=== PATIENT | female | born 1950 | race Hispanic/Latino ===

== ENCOUNTER → 2018-03-29 | Outpatient (CLI) | payer OTHER, MEDICARE ==
[~2018-03-29] MED LIST: AMLODIPINE PO; ASPI-1005 PO; GLIP5TAB11 PO; IBUP-2353 PO; INSLAN SQ; LEVOTHYROXINE PO; LOSA100T29 PO; METFORMIN PO; SIMV20TA6 PO; TYL3 PO
== END | disposition home or self-care (01) ==
LOC: RAH 08:37
PROVIDERS: ATTEND Family Medicine
DX: R60.0 Localized edema (principal); R06.02 Shortness of breath
CPT/HCPCS: 93306

== ENCOUNTER → 2018-06-30 | Outpatient (CLI) | payer SELFPAY ==
[~2018-06-30] MED LIST changes: +LOSA100T20 PO; -LOSA100T29 PO
== END | disposition home or self-care (01) ==
LOC: OIH 13:01
PROVIDERS: ATTEND Internal Medicine Cardiovascular Disease
DX: Z13.6 Encounter for screening for cardiovascular disorders (principal)
CPT/HCPCS: 75571

== ENCOUNTER → 2018-07-19 | Outpatient (CLI) | payer OTHER, MEDICARE | END | disposition home or self-care (01) | LOC: SHCH 10:02 | PROVIDERS: ATTEND Internal Medicine Cardiovascular Disease | DX: I87.2 Venous insufficiency (chronic) (peripheral) (principal); Z95.820 Peripheral vascular angioplasty status with implants and grafts | CPT/HCPCS: 93970 ==

== ENCOUNTER 2018-11-16 15:57 | Inpatient (IN) | payer OTHER, MEDICARE ==
[~2018-11-16] VITALS: Ht 149.9 cm; Wt 77.8 kg
[~2018-11-16 15:57] MED LIST changes: +AMLO5TAB9 PO; -AMLODIPINE PO; +CARV6.2579 PO; +CRAN1CAP10 PO; +ERGO500014 PO; -GLIP5TAB11 PO; +GLUC-145 PO; -IBUP-2353 PO; -INSLAN SQ; +INSU3INS3 SQ; +ISOS30TA6 PO; +LEVO100T12 PO; -LEVOTHYROXINE PO; -LOSA100T20 PO; +LOSA100T58 PO; +MELO-106 PO; +METF-446 PO; -METFORMIN PO; +NITR0.4T50 SL; +OMEP20TA25 PO; +PIOG30TA70 PO; +TURM500C9 PO; -TYL3 PO
[2018-11-16] MEDS ORDERED: ACETAMINOPHEN 325 MG TAB ONE (16:14)
[2018-11-16] MEDS ORDERED: ONDANSETRON HCL 4 MG/2 ML VIAL ONE (16:14)
[2018-11-16 16:18] LABS: BASOPHILS % (AUTO) 0.1 % (0.0-5.0); EOSINOPHILS % (AUTO) 0.8 % (0.0-8.0); HEMATOCRIT 30.6 % (36-48); LYMPHOCYTES % (AUTO) 2.7 % (21.0-51.0); MEAN CORPUSCULAR HEMOGLOBIN 25.9 pg (27.0-33.0); MEAN CORPUSCULAR HGB CONC 32.1 g/dL (32.0-36.0); MEAN CORPUSCULAR VOLUME 80.6 fL (79-99); MONOCYTES % (AUTO) 1.6 % (3.0-13.0); NEUTROPHILS % (AUTO) 94.8 % (40.0-77.0); PLATELET COUNT (AUTO) 141 K/uL (130-400); RED CELL DISTRIBUTION WIDTH 16.6 % (11.0-15.5); WHITE BLOOD COUNT (AUTO) 6.5 K/uL (4.8-10.8)
[2018-11-16 16:32] LABS: INR 1.03 (0.85-1.15); PARTIAL THROMBOPLASTIN TIME 25.2 SEC (26.3-35.5); PROTHROMBIN TIME 10.8 SEC (9.6-11.6)
[2018-11-16 16:36] LABS: APPEARANCE,URINE CLEAR (CLEAR); BILIRUBIN,URINE NEGATIVE (NEGATIVE); COLOR,URINE YELLOW (YELLOW); GLUCOSE, URINE (UA) NEGATIVE (NEGATIVE); KETONES,URINE 5 mg/dL (NEGATIVE); LEUKOCYTE ESTERASE ,URINE SMALL (NEGATIVE); NITRATE,URINE NEGATIVE (NEGATIVE); OCCULT BLOOD,URINE SMALL (NEGATIVE); PH,URINE 8.5 (5.0-8.0); PROTEIN,URINE 30 (NEGATIVE); UROBILINOGEN,URINE 0.2 mg/dL (0.2-1.0)
[2018-11-16 16:43] LABS: ALBUMIN 3.1 g/dL (3.5-5.0); BILIRUBIN,TOTAL 0.3 mg/dL (0.2-1.0); CREATININE 1.5 mg/dL (0.5-1.5); POTASSIUM 3.5 mmol/L (3.5-5.1); TOTAL PROTEIN, SERUM 7.5 g/dL (6.0-8.3)
[2018-11-16] MEDS ORDERED: SODIUM CHLORIDE 0.9% 500ML 500 ML IV ONE (16:52)
[2018-11-16 16:57] LABS: BACTERIA,URINE Few /HPF (None Seen)
[2018-11-16 16:58] LABS: SQUAMOUS EPITHELIAL CELL,UR None Seen /HPF (0-2)
[2018-11-16] MEDS ORDERED: SODIUM CHLORIDE 0.9% 50 ML IV ONE (18:25)
[2018-11-16] MEDS ORDERED: CEFTRIAXONE SODIUM 1 GM ONE (18:25)
[2018-11-16] MEDS ORDERED: LEVOFLOXACIN 500 MG/D5W 100 ML 0 ML ONE (18:50)
[2018-11-16] MEDS ORDERED: AZITHROMYCIN 500MG+NS 250ML 250 ML IV ONE (18:51)
[2018-11-16] MEDS ORDERED: POTASSIUM CHLORIDE 10% ELIXIR 20 MEQ/15 ML UDCUP PO PRN (19:30)
[2018-11-16] MEDS ORDERED: DIPHENHYDRAMINE HCL 25 MG CAPSULE PO PRN (19:30)
[2018-11-16] MEDS ORDERED: CLONIDINE HCL 0.1 MG TABLET PO PRN (19:30)
[2018-11-16] MEDS ORDERED: LIDOCAINE HCL-MPF 1% 2ML VIAL IJ PRN (19:30)
[2018-11-16] MEDS ORDERED: MAG HYDROX/AL HYDROX/SIMETH ES 30 ML SUSP UDCUP PO PRN (19:30)
[2018-11-16] MEDS ORDERED: ZOLPIDEM TARTRATE 5 MG TAB PO PRN (19:30)
[2018-11-16] MEDS ORDERED: LACTULOSE 20 GM/30 ML UDCUP PO PRN (19:30)
[2018-11-16] MEDS ORDERED: DEXTROSE 50%-WATER 50 ML DISP.SYRIN IV PRN (19:30)
[2018-11-16] MEDS ORDERED: ACETAMINOPHEN 325 MG TAB PO PRN ×2 (19:30)
[2018-11-16] MEDS ORDERED: POTASSIUM CHLORIDE 20 MEQ ERTAB PO PRN (19:30)
[2018-11-16] MEDS ORDERED: TRAMADOL HCL 50 MG TABLET PO PRN (19:30)
[2018-11-16] MEDS ORDERED: DiphenhydrAMINE HCL 50 MG/ML VIAL IVP PRN (19:30)
[2018-11-16] MEDS ORDERED: GLUCAGON 1MG KIT 1 MG ML IM PRN (19:30)
[2018-11-16] MEDS ORDERED: POTASSIUM CHLORIDE 20MEQ/100ML 100 ML IV PRN (19:30)
[2018-11-16] MEDS ORDERED: ONDANSETRON HCL 4 MG/2 ML VIAL IVP PRN (19:30)
[2018-11-16] MEDS: INSULIN R PO SSI SQ SCH (21:00)
[2018-11-16 22:20] VITALS: BP 94/50
--- NOTE | 2018-11-16 22:30 | NUR ---
ADMIT PT ADMITTED TO ROOM 329, AAOX3. DENIES ANY PAINS NOR DISCOMFORT AT THIS TIME. NO DISTRESS NOTED. ADMISSION CARE DONE. ADMISSION V/S MONITORED, STABLE. ADMISSION DATA BASE COMPLETED. HOME MEDS RECONCILED IN THE COMPUTER, PENDING MD TO REVIEW AND RECONCILE. IN FOR MORE CARE AND MANAGEMENT. Addendum: 11/16/18 at 1707 by ADRIANA SEE RN RN Amended: Links added.
[2018-11-16] MEDS ORDERED: POTA20TA82 PO (22:40)
[2018-11-16] MEDS ORDERED: IBUP-2353 PO (22:40)
[2018-11-16] MEDS ORDERED: LINA5TAB PO (22:40)
[2018-11-16] MEDS: IPRATROPIUM/ALBUTEROL SULFATE 3 ML SOLUTION IH SCH (22:46)
[2018-11-17] VITALS: BP 98/51
[2018-11-17] MEDS: IPRATROPIUM/ALBUTEROL SULFATE 3 ML SOLUTION IH SCH ×6 (02:00→21:28)
--- NOTE | 2018-11-17 02:00 | NUR ---
ROUNDS PT RESTING WELL, NO DISTRESS NOTED. NO COMPLAINTS VERBALIZED. KEPT RESTED AND COMFORTABLE. CALL LIGHT WITHIN REACH. WILL CONTINUE TO MONITOR.
[2018-11-17 04:00] VITALS: BP 97/59
[2018-11-17 04:14] LABS: HEMATOCRIT 25.1 % (36-48); MEAN CORPUSCULAR HEMOGLOBIN 25.4 pg (27.0-33.0); MEAN CORPUSCULAR HGB CONC 31.5 g/dL (32.0-36.0); MEAN CORPUSCULAR VOLUME 80.5 fL (79-99); PLATELET COUNT (AUTO) 117 K/uL (130-400); RED BLOOD CELL COUNT(AUTO) 3.12 MIL/uL (4.00-5.50); RED CELL DISTRIBUTION WIDTH 16.5 % (11.0-15.5); WHITE BLOOD COUNT (AUTO) 11.1 K/uL (4.8-10.8)
[2018-11-17 04:33] LABS: ALBUMIN 2.5 g/dL (3.5-5.0); BILIRUBIN,TOTAL 0.2 mg/dL (0.2-1.0); CREATININE 1.6 mg/dL (0.5-1.5); POTASSIUM 4.3 mmol/L (3.5-5.1); TOTAL PROTEIN, SERUM 6.2 g/dL (6.0-8.3)
--- NOTE | 2018-11-17 05:29 | NUR ---
ROUNDS PT STILL FAIRLY ASLEEP. NO DISTRESS NOTED. KEPT UNDISTURBED FOR NOW. FOR MORE CARE.
[2018-11-17] MEDS: INSULIN R PO SSI SQ SCH ×4 (06:18→20:59)
[2018-11-17] MEDS ORDERED: HONE44PA TP (07:02)
[2018-11-17 08:00] VITALS: BP 93/54
[2018-11-17] MEDS ORDERED: PNEUMOCOCCAL VACCINE POLYVALENT 0.5 ML/VIAL [PPV] IM SCH (09:00)
[2018-11-17] MEDS: HONEY 1 APPL/ML TUBE TP SCH ×2 (09:09→15:09)
[2018-11-17] MEDS: PANTOPRAZOLE SODIUM 40 MG TABLET.DR PO SCH (09:10)
[2018-11-17 12:00] VITALS: BP 99/58
--- NOTE | 2018-11-17 12:10 | NUR ---
DCP CM met with pt discussed dc plans. Pt is semi-independent prior to admission, lives at home alone. Has a walker, cane, and provider 26hrs/day([facility]isel is pt's provider). Pt feels safe to go back home, daughter and neice able to assist with transportation and needs as necessary. Offered poss short term placement if MD recommends, pt declined at this time. DC plan to home once stable. CM to cont to follow up. Addendum: 11/17/18 at 1212 by CESILIA PRESLEY LVN CM Amended: Links added.
[2018-11-17 16:00] VITALS: BP 100/55
[2018-11-17] MEDS ORDERED: AZITHROMYCIN 500MG+NS 250ML 250 ML IV ONE (16:24)
[2018-11-17] MEDS ORDERED: CEFTRIAXONE SODIUM 1 GM ONE (16:24)
[2018-11-17] MEDS: AZITHROMYCIN 500MG+NS 250ML 250 ML IV SCH (16:35)
[2018-11-17] MEDS ORDERED: CEFTRIAXONE SODIUM 1 GM IVP SCH (18:00)
[2018-11-17 20:00] VITALS: BP 100/56
[2018-11-18] VITALS: BP 140/70
[2018-11-18] MEDS: IPRATROPIUM/ALBUTEROL SULFATE 3 ML SOLUTION IH SCH ×6 (01:21→22:39)
--- NOTE | 2018-11-18 03:30 | NUR ---
CHAIR PATIENT UP TO CHAIR AT BEDSIDE FOR 1.5 HOURS WITH ONE PERSON ASSIST. RESPIRATIONS EVEN AND UNLABORED-REMAINS ON O2 2L VIA NC. ASSISTED PATIENT BACK TO BED. PATIENT TOLERATED WELL.
[2018-11-18 04:00] VITALS: BP 140/70
[2018-11-18] MEDS: INSULIN R PO SSI SQ SCH ×4 (06:01→21:39)
[2018-11-18 09:24] VITALS: BP 130/64
--- NOTE | 2018-11-18 09:33 | NUR ---
CALLED DR BARRAGAN, HIS OFFICE NUMBER JUMPS TO A MESSAGE SAYING THEY ARE BUSY AND TO CALL LATER, CALLED 3 TIMES IN THE LAST 15 MINUTES. WILL CALL AGAIN IN AN HOUR
[2018-11-18] MEDS: MEROPENEM 500 MG VIAL IVP SCH ×2 (10:30→17:33)
[2018-11-18] MEDS: PANTOPRAZOLE SODIUM 40 MG TABLET.DR PO SCH (10:30)
[2018-11-18] MEDS: HONEY 1 APPL/ML TUBE TP SCH (10:36)
[2018-11-18 12:17] VITALS: BP 123/76
[2018-11-18 16:28] VITALS: BP 127/63
[2018-11-18] MEDS: AZITHROMYCIN 500MG+NS 250ML 250 ML IV SCH (17:33)
[2018-11-18 19:57] VITALS: BP 121/61
[2018-11-19] VITALS: BP 119/58
[2018-11-19] MEDS: MEROPENEM 500 MG VIAL IVP SCH ×3 (01:13→17:08)
[2018-11-19] MEDS: IPRATROPIUM/ALBUTEROL SULFATE 3 ML SOLUTION IH SCH ×4 (02:00→14:45)
[2018-11-19 04:00] VITALS: BP 115/64
[2018-11-19] MEDS: INSULIN R PO SSI SQ SCH ×3 (06:14→16:35)
[2018-11-19 07:48] VITALS: BP 132/61
[2018-11-19] MEDS: PANTOPRAZOLE SODIUM 40 MG TABLET.DR PO SCH (09:13)
[2018-11-19] MEDS: HONEY 1 APPL/ML TUBE TP SCH (09:15)
[2018-11-19 11:57] VITALS: BP 118/56
[2018-11-19 13:02] LABS: HEMATOCRIT 28.2 % (36-48); MEAN CORPUSCULAR HEMOGLOBIN 25.7 pg (27.0-33.0); MEAN CORPUSCULAR HGB CONC 31.9 g/dL (32.0-36.0); MEAN CORPUSCULAR VOLUME 80.6 fL (79-99); PLATELET COUNT (AUTO) 138 K/uL (130-400); RED CELL DISTRIBUTION WIDTH 16.5 % (11.0-15.5); WHITE BLOOD COUNT (AUTO) 5.7 K/uL (4.8-10.8)
[2018-11-19] MEDS: AZITHROMYCIN 500MG+NS 250ML 250 ML IV SCH (17:08)
--- NOTE | 2018-11-19 17:30 | NUR ---
Patient PIV removed; discharge instructions given; prescription given and copy made and placed in chart
== END 2018-11-19 17:25 | disposition home or self-care (01) | DRG 195 ==
LOC: EDH 15:57 → OBSVTOIN 18:50 → EDHIP 18:50 → 3AH 22:15
PROVIDERS: ADMIT Family Medicine; ATTEND Family Medicine
PROC: 3E0234Z Introduction of Serum, Toxoid and Vaccine into Muscle, Percutaneous Approach (ICD-10-PCS; principal; 2018-11-17)
DX: J18.9 Pneumonia, unspecified organism (principal); I10 Essential (primary) hypertension; E11.9 Type 2 diabetes mellitus without complications; I25.10 Atherosclerotic heart disease of native coronary artery without angina pectoris; E78.5 Hyperlipidemia, unspecified; Z95.1 Presence of aortocoronary bypass graft; Z23 Encounter for immunization
CPT/HCPCS: 36415; 71045; 80053; 81001; 82948; 83605; 84484; 85025; 85027; 85610; 85730; 87040; 87077; 87088; 87186; 87804; 93005; 94640; 94664; A4218; G0378; J0456; J0696; J1815; J1956; J2185; J2405; J7040

== ENCOUNTER → 2018-12-05 | Outpatient (CLI) | payer OTHER, MEDICARE ==
[~2018-12-05] MED LIST changes: +AEC81 PO; +FURO20TA4 PO; +HONE44PA TP; +IBUP-2353 PO; +LINA5TAB PO; +POTA20TA82 PO; +TRAZ-185 PO; -TURM500C9 PO
== END | disposition home or self-care (01) ==
LOC: OIH 13:10
PROVIDERS: ATTEND Family Medicine
DX: J90 Pleural effusion, not elsewhere classified (principal); R91.8 Other nonspecific abnormal finding of lung field; J98.11 Atelectasis; M85.88 Other specified disorders of bone density and structure, other site
CPT/HCPCS: 71046

== ENCOUNTER 2018-12-06 21:05 | Inpatient (IN) | payer OTHER, MEDICARE | END 2018-12-10 14:40 | disposition still patient (30) | LOC: EDH 21:05 → EDHIP 23:37 → 2DH 12-07 01:40 | DX: I50.9 Heart failure, unspecified (principal) ==

== ENCOUNTER 2020-11-14 08:11 | Inpatient (IN) | payer OTHER, MEDICARE ==
[2020-11-14] VITALS (30 sets, daily range): BP systolic 88–116; BP diastolic -14–57
[~2020-11-14] VITALS: Ht 149.9 cm; Wt 76.8 kg
[~2020-11-14 08:11] MED LIST changes: +AMLO-257 PO; -AMLO5TAB9 PO; -ASPI-1005 PO; -FURO20TA4 PO; -HONE44PA TP; -IBUP-2353 PO; +IBUP-2784 PO; -ISOS30TA6 PO; +ISOS30TA92 PO; -POTA20TA82 PO; +ROCURONIUM BROMIDE 10MG/1ML 5ML VL IV ONE; +SIMV-43 PO; -SIMV20TA6 PO
[2020-11-14] MEDS ORDERED: 0.9%NACL 1000ML 1,000 ML IV ONE ×3 (08:37→14:05)
[2020-11-14] MEDS ORDERED: 0.9%NACL 1000ML 2,000 ML IV ONE (08:54)
[2020-11-14] MEDS ORDERED: NOREPINEPHRIN 4MG/NS 250ML 250 ML IV ONE ×2 (08:55→10:07)
[2020-11-14] MEDS ORDERED: ZOSYN 3.375GM+NS 50ML 50 ML IV ONE (08:55)
[2020-11-14] MEDS ORDERED: KETAMINE 50MG/ML SYRINGE 50 MG/ML DISP.SYRIN IV ONE (09:10)
[2020-11-14] MEDS ORDERED: ROCURONIUM BROMIDE 10MG/1ML 5ML VL ONE (09:11)
[2020-11-14 09:16] LABS: ABG BASE EXCESS -27.1 mmol/L (-2.0-3.0); ABG OXYGEN SATURATION 98.3 % (95.0-99.0); ABG PCO2 30 mmHg (32-45)
[2020-11-14] MEDS ORDERED: SODIUM BICARB 50MEQ 50ML VIAL 100 ML ONE ×2 (09:21→13:57)
[2020-11-14] MEDS ORDERED: DEXTROSE 50%-WATER 50 ML DISP.SYRIN IV ONE (09:21)
[2020-11-14] MEDS ORDERED: INSULIN HUMULIN R 100 UNIT/ML 3ML ONE (09:21)
[2020-11-14 09:30] LABS: BASOPHILS % (AUTO) 0.1 % (0.0-5.0); HEMATOCRIT 26.5 % (36-48); LYMPHOCYTES % (AUTO) 11.6 % (21.0-51.0); MEAN CORPUSCULAR HEMOGLOBIN 24.1 pg (27.0-33.0); MEAN CORPUSCULAR HGB CONC 29.1 g/dL (32.0-36.0); MEAN CORPUSCULAR VOLUME 83.1 fL (79-99); MONOCYTES % (AUTO) 3.3 % (3.0-13.0); NEUTROPHILS % (AUTO) 83.4 % (40.0-77.0); PLATELET COUNT (AUTO) 184 K/uL (130-400); RED BLOOD CELL COUNT(AUTO) 3.19 MIL/uL (4.00-5.50); RED CELL DISTRIBUTION WIDTH 20.8 % (11.0-15.5); WHITE BLOOD COUNT (AUTO) 16.2 K/uL (4.8-10.8)
[2020-11-14 09:35] LABS: APPEARANCE,URINE SL CLOUDY (CLEAR); BILIRUBIN,URINE NEGATIVE (NEGATIVE); COLOR,URINE YELLOW (YELLOW); GLUCOSE, URINE (UA) NEGATIVE (NEGATIVE); KETONES,URINE NEGATIVE (NEGATIVE); LEUKOCYTE ESTERASE ,URINE NEGATIVE (NEGATIVE); NITRATE,URINE NEGATIVE (NEGATIVE); OCCULT BLOOD,URINE LARGE (NEGATIVE); PROTEIN,URINE 30 mg/dL (NEGATIVE); UROBILINOGEN,URINE 0.2 mg/dL (0.2-1.0)
[2020-11-14 09:42] LABS: INR 1.23 (0.85-1.15); PROTHROMBIN TIME 13.2 SEC (9.6-11.6)
[2020-11-14 09:43] LABS: PARTIAL THROMBOPLASTIN TIME 44.3 SEC (26.3-35.5)
[2020-11-14 10:03] LABS: BACTERIA,URINE Rare /HPF (None Seen); RBC,URINE 0-1 /HPF (0-1); WBC,URINE 0-1 /HPF (0-1)
[2020-11-14 10:05] LABS: ALBUMIN 2.6 g/dL (3.5-5.0); BILIRUBIN,TOTAL 0.1 mg/dL (0.2-1.0); CREATININE 7.2 mg/dL (0.5-1.5); CRP QUANTITATIVE 11.4 mg/L (0.00-9.0); TOTAL PROTEIN, SERUM 6.1 g/dL (6.0-8.3)
[2020-11-14 10:09] LABS: B-TYPE NATRIURETIC PEPTIDE 600 pg/mL (0-100)
[2020-11-14] MEDS ORDERED: NOREPINEPHRIN 4MG/NS 250ML 250 ML IV PRN (10:30)
[2020-11-14] MEDS ORDERED: GLUCAGON 1MG KIT 1 MG ML IM PRN (10:30)
[2020-11-14] MEDS ORDERED: DEXTROSE 50%-WATER 50 ML DISP.SYRIN IV PRN (10:30)
[2020-11-14] MEDS ORDERED: NOREPINEPHRINE BITARTRATE 16 MG in 0.9% NACL 250ML 250 ML IV SCH (10:30)
[2020-11-14] MEDS ORDERED: MAGNESIUM 2GM PREMIX 50ML 50 ML IV PRN (10:30)
[2020-11-14] MEDS: PANTOPRAZOLE 40 MG/VIAL IVP SCH ×2 (10:45→20:45)
[2020-11-14] MEDS ORDERED: PANTOPRAZOLE 40 MG/VIAL ONE (10:47)
[2020-11-14 10:59] LABS: ABG BASE EXCESS -23.9 mmol/L (-2.0-3.0); ABG HCO3 6.2 mmol/L (21.0-28.0); ABG OXYGEN SATURATION 95.8 % (95.0-99.0); ABG PCO2 27 mmHg (32-45)
[2020-11-14] MEDS ORDERED: CEFTRIAXONE 500MG VIAL ONE (11:05)
[2020-11-14] MEDS ORDERED: PROPOFOL 1000 MG/100 ML 100 ML IV ONE ×2 (11:15→17:55)
[2020-11-14 11:32] LABS: CREATININE 6.3 mg/dL (0.5-1.5)
[2020-11-14 11:34] LABS: POTASSIUM 6.4 mmol/L (3.5-5.1)
[2020-11-14] MEDS: VANCOMYCIN 1G/250ML KIT 250 ML IV SCH (14:38)
[2020-11-14] MEDS ORDERED: VANCOMYCIN PROTOCOL PER PHARMACY IV SCH (14:45)
[2020-11-14] MEDS: [UNRECOGNIZED DRUG - OTHER] IV SCH (14:45)
[2020-11-14] MEDS: SODIUM BICARB IV SCH (14:45)
[2020-11-14 15:52] LABS: TROPONIN I 0.09 ng/mL (0.00-0.06)
[2020-11-14] MEDS ORDERED: PHARMACY COMMUNICATION MISC SCH (19:00)
[2020-11-14] MEDS: NOREPINEPHRINE BITARTRATE 32 MG in 0.9% NACL 250ML 250 ML IV SCH (20:18)
[2020-11-14] MEDS: ZOSYN 3.375GM+NS 50ML 50 ML IV SCH (20:45)
[2020-11-14 23:27] LABS: HEMATOCRIT 31.4 % (36-48); MEAN CORPUSCULAR HEMOGLOBIN 24.1 pg (27.0-33.0); MEAN CORPUSCULAR HGB CONC 28.3 g/dL (32.0-36.0); MEAN CORPUSCULAR VOLUME 84.9 fL (79-99); PLATELET COUNT (AUTO) 274 K/uL (130-400); RED CELL DISTRIBUTION WIDTH 21.2 % (11.0-15.5)
[2020-11-14 23:36] LABS: WHITE BLOOD COUNT (AUTO) 33.8 K/uL (4.8-10.8)
[2020-11-14 23:44] LABS: ALBUMIN 2.3 g/dL (3.5-5.0); BILIRUBIN,TOTAL 0.3 mg/dL (0.2-1.0); CREATININE 6.1 mg/dL (0.5-1.5); TOTAL PROTEIN, SERUM 5.7 g/dL (6.0-8.3)
[2020-11-14 23:50] LABS: POTASSIUM 7.3 mmol/L (3.5-5.1)
[2020-11-15] VITALS (93 sets, daily range): BP systolic 76–141; BP diastolic 29–83
[2020-11-15] MEDS: SODIUM BICARB 8.4% 50ML SYRINGE IVP SCH (00:30)
[2020-11-15] MEDS: DEXTROSE 50%-WATER 25 GM/50 ML VIAL IV SCH (00:30)
[2020-11-15] MEDS ORDERED: INSULIN HUMULIN R 100 UNIT/ML 3ML ONE (00:42)
[2020-11-15] MEDS ORDERED: CALCIUM GLUC 1GM/10ML VIAL IV ONE (00:42)
[2020-11-15] MEDS ORDERED: SODIUM BICARB 50MEQ 50ML VIAL 50 ML ONE (00:45)
[2020-11-15 00:46] LABS: BAND NEUTROPHILS % (MANUAL) 3 % (0-2); LYMPHOCYTES % (MANUAL) 14 % (22-44); MAN.DIFF COMMENT-IMPRESSION MANUAL DIFFERENTIAL; MONOCYTES % (MANUAL) 6 % (2-9); PLATELET MORPHOLOGY COMMENT ADEQUATE; SEGMENTED NEUTROPHILS % 77 % (40-70)
[2020-11-15] MEDS: CALCIUM GLUC 1GM/10ML VIAL IV SCH (00:48)
[2020-11-15] MEDS: INSULIN HUMULIN R 100 UNIT/ML 3ML SQ SCH (00:50)
[2020-11-15 03:28] LABS: ABG BASE EXCESS -28.1 mmol/L (-2.0-3.0); ABG HCO3 3.5 mmol/L (21.0-28.0); ABG OXYGEN SATURATION 98.9 % (95.0-99.0); ABG PCO2 18 mmHg (32-45)
[2020-11-15 03:28] LABS: BASOPHILS % (AUTO) 0.4 % (0.0-5.0); EOSINOPHILS % (AUTO) 0.1 % (0.0-8.0); HEMATOCRIT 30.2 % (36-48); LYMPHOCYTES % (AUTO) 4.4 % (21.0-51.0); MEAN CORPUSCULAR HEMOGLOBIN 24.1 pg (27.0-33.0); MEAN CORPUSCULAR HGB CONC 28.8 g/dL (32.0-36.0); MEAN CORPUSCULAR VOLUME 83.7 fL (79-99); MONOCYTES % (AUTO) 8.6 % (3.0-13.0); NEUTROPHILS % (AUTO) 82.4 % (40.0-77.0); NUCLEATED RED BLOOD CELLS 0.1 % (0.0-0.19); PLATELET COUNT (AUTO) 261 K/uL (130-400); RED BLOOD CELL COUNT(AUTO) 3.61 MIL/uL (4.00-5.50); RED CELL DISTRIBUTION WIDTH 21.2 % (11.0-15.5)
[2020-11-15 03:32] LABS: WHITE BLOOD COUNT (AUTO) 34.2 K/uL (4.8-10.8)
[2020-11-15 03:41] LABS: CREATININE 6.2 mg/dL (0.5-1.5); MAGNESIUM 1.6 mg/dL (1.80-2.40); PHOSPHORUS 8.9 mg/dL (2.5-4.9)
[2020-11-15] MEDS: NOREPINEPHRINE BITARTRATE 32 MG in 0.9% NACL 250ML 250 ML IV SCH ×3 (03:48→19:53)
[2020-11-15 03:51] LABS: POTASSIUM 6.2 mmol/L (3.5-5.1)
[2020-11-15] MEDS: VASOPRESSIN 20 UNITS in 0.9%NACL 100ML 99 ML IV PRN ×2 (04:09→19:45)
[2020-11-15] MEDS ORDERED: PROPOFOL 1000 MG/100 ML 100 ML IV ONE ×2 (06:36→15:22)
[2020-11-15] MEDS: PANTOPRAZOLE 40 MG/VIAL IVP SCH ×2 (08:56→20:33)
[2020-11-15] MEDS: ZOSYN 3.375GM+NS 50ML 50 ML IV SCH ×2 (08:57→20:33)
[2020-11-15] MEDS ORDERED: CEFTRIAXONE 1G VIAL IVP SCH (09:00)
[2020-11-15] MEDS ORDERED: ALTEPLASE 2MG VIAL 2 MG/VIAL VIAL IVCATH ONE (11:00)
[2020-11-15] MEDS: SODIUM BICARB IV SCH (11:47)
[2020-11-15] MEDS: [UNRECOGNIZED DRUG - OTHER] IV SCH (11:47)
[2020-11-15] MEDS ORDERED: HEPARIN 5,000 UNIT VIAL ONE (14:09)
[2020-11-15] MEDS ORDERED: HEPARIN 5,000 UNIT VIAL SQ SCH (14:30)
[2020-11-15] MEDS ORDERED: HEPARIN 5,000 UNIT VIAL IV ONE (22:37)
[2020-11-15] MEDS ORDERED: ACETAMINOPHEN 325 MG TAB PO PRN (22:45)
[2020-11-15] MEDS ORDERED: 0.9%NACL 1000ML 1,000 ML IV PRN (22:45)
[2020-11-15] MEDS: HEPARIN 5,000 UNIT VIAL SQ SCH (22:45)
[2020-11-15] MEDS ORDERED: ALBUMIN FOR BP SUPPORT MISC PRN (22:45)
[2020-11-15] MEDS ORDERED: 0.9%NACL 1000ML IV PRN (22:45)
[2020-11-15] MEDS ORDERED: NITROGLYCERIN 0.4 MG SL TAB SL PRN (22:45)
[2020-11-15] MEDS ORDERED: HEPARIN 5,000 UNIT VIAL IJ PRN (22:45)
[2020-11-15] MEDS ORDERED: LIDOCAINE HCL-MPF 1% 2ML VIAL IJ PRN (22:45)
[2020-11-15 23:04] LABS: HEMATOCRIT 29.4 % (36-48)
[2020-11-15 23:22] LABS: ALBUMIN 2.4 g/dL (3.5-5.0); CREATININE 3.7 mg/dL (0.5-1.5)
[2020-11-15 23:26] LABS: % IRON SATURATION 29.1 % (22-44)
[2020-11-16] VITALS (78 sets, daily range): BP systolic 87–174; BP diastolic 43–86
[2020-11-16] MEDS: DEXTROSE 50%-WATER 25 GM/50 ML VIAL IV SCH (00:30)
[2020-11-16] MEDS: SODIUM BICARB 8.4% 50ML SYRINGE IVP SCH (00:30)
[2020-11-16] MEDS: INSULIN HUMULIN R 100 UNIT/ML 3ML SQ SCH (00:30)
[2020-11-16] MEDS: CALCIUM GLUC 1GM/10ML VIAL IV SCH (00:30)
[2020-11-16 05:01] LABS: ABG BASE EXCESS -6.7 mmol/L (-2.0-3.0); ABG HCO3 15.4 mmol/L (21.0-28.0); ABG OXYGEN SATURATION 95.9 % (95.0-99.0); ABG PCO2 24 mmHg (32-45)
[2020-11-16 05:13] LABS: BASOPHILS % (AUTO) 0.2 % (0.0-5.0); EOSINOPHILS % (AUTO) 1.5 % (0.0-8.0); LYMPHOCYTES % (AUTO) 4.9 % (21.0-51.0); MEAN CORPUSCULAR HEMOGLOBIN 23.8 pg (27.0-33.0); MEAN CORPUSCULAR HGB CONC 32.4 g/dL (32.0-36.0); MEAN CORPUSCULAR VOLUME 73.5 fL (79-99); MONOCYTES % (AUTO) 6.1 % (3.0-13.0); NEUTROPHILS % (AUTO) 86.6 % (40.0-77.0); PLATELET COUNT (AUTO) 120 K/uL (130-400); RED CELL DISTRIBUTION WIDTH 20.9 % (11.0-15.5); WHITE BLOOD COUNT (AUTO) 24.9 K/uL (4.8-10.8)
[2020-11-16 05:37] LABS: ALBUMIN 1.9 g/dL (3.5-5.0); BILIRUBIN,TOTAL 0.4 mg/dL (0.2-1.0); CREATININE 4.3 mg/dL (0.5-1.5); TOTAL PROTEIN, SERUM 4.9 g/dL (6.0-8.3)
[2020-11-16] MEDS: PROPOFOL 1000 MG/100 ML IV PRN ×3 (05:42→23:35)
[2020-11-16] MEDS: PANTOPRAZOLE 40 MG/VIAL IVP SCH ×2 (08:21→20:57)
[2020-11-16] MEDS: ZOSYN 3.375GM+NS 50ML 50 ML IV SCH ×2 (08:21→20:57)
[2020-11-16] MEDS ORDERED: ALBUMIN (HUMAN) 25% 100 ML IV ONE (13:29)
[2020-11-16] MEDS ORDERED: ALBUMIN (HUMAN) 25% 100 ML IV SCH (13:30)
[2020-11-16] MEDS: HEPARIN 5,000 UNIT VIAL SQ SCH (15:57)
[2020-11-17] VITALS (72 sets, daily range): BP systolic 83–153; BP diastolic 42–71
[2020-11-17] MEDS: DEXTROSE 50%-WATER 25 GM/50 ML VIAL IV SCH ×2 (00:30→23:45)
[2020-11-17] MEDS: CALCIUM GLUC 1GM/10ML VIAL IV SCH ×2 (00:30→23:45)
[2020-11-17] MEDS: INSULIN HUMULIN R 100 UNIT/ML 3ML SQ SCH ×2 (00:30→23:45)
[2020-11-17] MEDS: SODIUM BICARB 8.4% 50ML SYRINGE IVP SCH ×2 (00:30→23:45)
[2020-11-17 06:34] LABS: MAGNESIUM 1.7 mg/dL (1.80-2.40); PHOSPHORUS 3.8 mg/dL (2.5-4.9)
[2020-11-17] MEDS: ZOSYN 3.375GM+NS 50ML 50 ML IV SCH ×2 (10:37→21:41)
[2020-11-17] MEDS: PANTOPRAZOLE 40 MG/VIAL IVP SCH ×2 (10:37→21:41)
[2020-11-17] MEDS: PROPOFOL 1000 MG/100 ML IV PRN (10:38)
[2020-11-17] MEDS ORDERED: MIDAZOLAM 100MG-0.9% NS 100ML 100ML BAG IV PRN (14:30)
[2020-11-17] MEDS ORDERED: FENTANYL 2500MCG+NS 250ML 250 ML IV SCH (14:30)
[2020-11-17] MEDS ORDERED: FENTANYL CITRATE PF 50 MCG/1 ML 2ML VIAL IVP SCH (14:30)
[2020-11-17] MEDS: HEPARIN 5,000 UNIT VIAL SQ SCH (22:24)
[2020-11-18] VITALS (81 sets, daily range): BP systolic 76–190; BP diastolic 44–85
[2020-11-18 05:23] LABS: BASOPHILS % (AUTO) 0.2 % (0.0-5.0); EOSINOPHILS % (AUTO) 0.1 % (0.0-8.0); HEMATOCRIT 22.3 % (36-48); LYMPHOCYTES % (AUTO) 7.4 % (21.0-51.0); MEAN CORPUSCULAR HEMOGLOBIN 23.9 pg (27.0-33.0); MEAN CORPUSCULAR HGB CONC 32.3 g/dL (32.0-36.0); MEAN CORPUSCULAR VOLUME 74.1 fL (79-99); MONOCYTES % (AUTO) 5.7 % (3.0-13.0); NEUTROPHILS % (AUTO) 85.1 % (40.0-77.0); PLATELET COUNT (AUTO) 61 K/uL (130-400); RED BLOOD CELL COUNT(AUTO) 3.01 MIL/uL (4.00-5.50); RED CELL DISTRIBUTION WIDTH 19.9 % (11.0-15.5); WHITE BLOOD COUNT (AUTO) 13.2 K/uL (4.8-10.8)
[2020-11-18 05:58] LABS: ALBUMIN 1.6 g/dL (3.5-5.0); BILIRUBIN,TOTAL 0.6 mg/dL (0.2-1.0); CREATININE 4.2 mg/dL (0.5-1.5); POTASSIUM 3.6 mmol/L (3.5-5.1); TOTAL PROTEIN, SERUM 4.9 g/dL (6.0-8.3)
[2020-11-18 07:18] LABS: ABG BASE EXCESS -1.1 mmol/L (-2.0-3.0); ABG OXYGEN SATURATION 97.5 % (95.0-99.0); ABG PCO2 22 mmHg (32-45)
[2020-11-18] MEDS: PANTOPRAZOLE 40 MG/VIAL IVP SCH ×2 (09:00→21:50)
[2020-11-18 09:10] LABS: HEPATITIS Bs ANTIGEN SCREEN P Negative (Negative)
[2020-11-18] MEDS: ZOSYN 3.375GM+NS 50ML 50 ML IV SCH ×2 (09:13→20:45)
[2020-11-18] MEDS: FAMOTIDINE 20MG VIAL IV SCH (09:13)
[2020-11-18] MEDS: FUROSEMIDE 40MG VIAL IV SCH ×2 (11:24→21:30)
[2020-11-18] MEDS ORDERED: DOCUSATE NA 100MG/10ML UDCUP PO PRN (14:45)
[2020-11-18] MEDS ORDERED: 0.9% NACL 250ML 250 ML IV ONE (15:42)
[2020-11-18] MEDS: SOLU-MEDROL 125MG VIAL IVP SCH ×2 (16:02→22:19)
[2020-11-18] MEDS: INSULIN HUMULIN R 100 UNIT/ML 3ML SQ SCH ×3 (16:30→23:54)
[2020-11-18] MEDS: HEPARIN 5,000 UNIT VIAL SQ SCH (22:00)
[2020-11-18] MEDS: DEXTROSE 50%-WATER 25 GM/50 ML VIAL IV SCH (23:54)
[2020-11-18] MEDS: SODIUM BICARB 8.4% 50ML SYRINGE IVP SCH (23:54)
[2020-11-18] MEDS: CALCIUM GLUC 1GM/10ML VIAL IV SCH (23:54)
[2020-11-19] VITALS (42 sets, daily range): BP systolic 96–178; BP diastolic 28–75
[2020-11-19] MEDS: SOLU-MEDROL 125MG VIAL IVP SCH ×3 (06:12→23:30)
[2020-11-19] MEDS: PANTOPRAZOLE 40 MG/VIAL IVP SCH ×2 (08:53→20:00)
[2020-11-19] MEDS: FAMOTIDINE 20MG VIAL IV SCH (08:53)
[2020-11-19] MEDS: ZOSYN 3.375GM+NS 50ML 50 ML IV SCH ×2 (08:53→20:00)
[2020-11-19] MEDS: FUROSEMIDE 40MG VIAL IV SCH ×2 (09:04→20:35)
[2020-11-19] MEDS: INSULIN HUMULIN R 100 UNIT/ML 3ML SQ SCH ×4 (09:06→20:34)
[2020-11-19] MEDS: POLYETHYLENE GLYCOL 3350 17 GM POWD.PACK PO SCH (20:00)
[2020-11-19] MEDS: HEPARIN 5,000 UNIT VIAL SQ SCH (22:15)
[2020-11-20] VITALS (26 sets, daily range): BP systolic 108–146; BP diastolic 42–80
[2020-11-20] MEDS: CALCIUM GLUC 1GM/10ML VIAL IV SCH (00:21)
[2020-11-20] MEDS: DEXTROSE 50%-WATER 25 GM/50 ML VIAL IV SCH (00:21)
[2020-11-20] MEDS: INSULIN HUMULIN R 100 UNIT/ML 3ML SQ SCH ×5 (00:22→21:06)
[2020-11-20] MEDS: SODIUM BICARB 8.4% 50ML SYRINGE IVP SCH (00:22)
[2020-11-20] MEDS: SOLU-MEDROL 125MG VIAL IVP SCH ×3 (06:07→23:35)
[2020-11-20] MEDS: POLYETHYLENE GLYCOL 3350 17 GM POWD.PACK PO SCH (09:00)
[2020-11-20] MEDS: ZOSYN 3.375GM+NS 50ML 50 ML IV SCH (09:00)
[2020-11-20] MEDS: FAMOTIDINE 20MG VIAL IV SCH (09:00)
[2020-11-20] MEDS: PANTOPRAZOLE 40 MG/VIAL IVP SCH ×2 (09:00→21:05)
[2020-11-20 09:13] LABS: BASOPHILS % (AUTO) 0.4 % (0.0-5.0); HEMATOCRIT 33.9 % (36-48); LYMPHOCYTES % (AUTO) 2.5 % (21.0-51.0); MEAN CORPUSCULAR HEMOGLOBIN 25.6 pg (27.0-33.0); MEAN CORPUSCULAR HGB CONC 32.4 g/dL (32.0-36.0); MEAN CORPUSCULAR VOLUME 78.8 fL (79-99); NEUTROPHILS % (AUTO) 90.9 % (40.0-77.0); NUCLEATED RED BLOOD CELLS 0.1 % (0.0-0.19); PLATELET COUNT (AUTO) 108 K/uL (130-400); RED CELL DISTRIBUTION WIDTH 21.1 % (11.0-15.5)
[2020-11-20 09:14] LABS: POTASSIUM 4.1 mmol/L (3.5-5.1)
[2020-11-20] MEDS: FUROSEMIDE 40MG VIAL IV SCH (09:30)
[2020-11-20 10:00] LABS: WHITE BLOOD COUNT (AUTO) 31.5 K/uL (4.8-10.8)
[2020-11-20 10:34] LABS: BAND NEUTROPHILS % (MANUAL) 8 % (0-2); LYMPHOCYTES % (MANUAL) 3 % (22-44); METAMYELOCYTES % 1 % (0-0); MONOCYTES % (MANUAL) 1 % (2-9); SEGMENTED NEUTROPHILS % 87 % (40-70)
[2020-11-20 10:35] LABS: MAN.DIFF COMMENT-IMPRESSION MANUAL DIFFERENTIAL
[2020-11-20 10:36] LABS: PLATELET MORPHOLOGY COMMENT MARKED DECREASE
[2020-11-20] MEDS: HEPARIN 5,000 UNIT VIAL IJ PRN (11:53)
[2020-11-20] MEDS: FERROUS SULFATE 325 MG TABLET.DR PO SCH (21:00)
[2020-11-20] MEDS: HEPARIN 5,000 UNIT VIAL SQ SCH (22:45)
[2020-11-21] VITALS (46 sets, daily range): BP systolic 92–176; BP diastolic 23–81
[2020-11-21] MEDS: SODIUM BICARB 8.4% 50ML SYRINGE IVP SCH (00:30)
[2020-11-21] MEDS: CALCIUM GLUC 1GM/10ML VIAL IV SCH (00:30)
[2020-11-21] MEDS: INSULIN HUMULIN R 100 UNIT/ML 3ML SQ SCH ×5 (00:30→20:45)
[2020-11-21] MEDS: DEXTROSE 50%-WATER 25 GM/50 ML VIAL IV SCH (00:30)
[2020-11-21 03:23] LABS: ABG BASE EXCESS -5.2 mmol/L (-2.0-3.0); ABG HCO3 23.4 mmol/L (21.0-28.0); ABG OXYGEN SATURATION 95.4 % (95.0-99.0); ABG PCO2 58 mmHg (32-45)
[2020-11-21 05:22] LABS: BASOPHILS % (AUTO) 0.6 % (0.0-5.0); LYMPHOCYTES % (AUTO) 2.5 % (21.0-51.0); MEAN CORPUSCULAR HEMOGLOBIN 25.4 pg (27.0-33.0); MEAN CORPUSCULAR HGB CONC 31.4 g/dL (32.0-36.0); MEAN CORPUSCULAR VOLUME 80.8 fL (79-99); MONOCYTES % (AUTO) 4.3 % (3.0-13.0); NEUTROPHILS % (AUTO) 88.7 % (40.0-77.0); NUCLEATED RED BLOOD CELLS 0.1 % (0.0-0.19); PLATELET COUNT (AUTO) 151 K/uL (130-400); RED BLOOD CELL COUNT(AUTO) 4.33 MIL/uL (4.00-5.50); RED CELL DISTRIBUTION WIDTH 21.2 % (11.0-15.5)
[2020-11-21 05:34] LABS: CREATININE 3.4 mg/dL (0.5-1.5); PHOSPHORUS 7.4 mg/dL (2.5-4.9)
[2020-11-21 05:41] LABS: WHITE BLOOD COUNT (AUTO) 31.8 K/uL (4.8-10.8)
[2020-11-21] MEDS: SOLU-MEDROL 125MG VIAL IVP SCH ×3 (06:42→22:01)
[2020-11-21] MEDS: FAMOTIDINE 20MG VIAL IV SCH (09:00)
[2020-11-21] MEDS: ZOSYN 3.375GM+NS 50ML 50 ML IV SCH ×2 (09:14→20:41)
[2020-11-21] MEDS: POLYETHYLENE GLYCOL 3350 17 GM POWD.PACK PO SCH (09:14)
[2020-11-21] MEDS: PANTOPRAZOLE 40 MG/VIAL IVP SCH ×2 (09:14→20:41)
[2020-11-21] MEDS: Vitamin B Complex/Vit C/Folic Acid PO SCH (09:14)
[2020-11-21] MEDS: FERROUS SULFATE 325 MG TABLET.DR PO SCH ×2 (09:14→20:42)
[2020-11-21] MEDS ORDERED: METOLAZONE 2.5 MG TABLET PO SCH (09:15)
[2020-11-21] MEDS: FUROSEMIDE 40MG VIAL IV SCH ×2 (09:54→20:42)
[2020-11-21] MEDS: VANCOMYCIN 1G/250ML KIT 250 ML IV SCH (10:00)
[2020-11-21] MEDS ORDERED: RENAL DOSE IV PRN (19:00)
[2020-11-21] MEDS: INSULIN GLARGINE 100 UNITS/ML 10 ML VIAL SQ SCH (20:44)
[2020-11-21] MEDS: HEPARIN 5,000 UNIT VIAL SQ SCH (21:45)
[2020-11-22] VITALS (52 sets, daily range): BP systolic 83–147; BP diastolic 37–94
[2020-11-22] MEDS: INSULIN HUMULIN R 100 UNIT/ML 3ML SQ SCH ×6 (00:30→23:57)
[2020-11-22] MEDS: CALCIUM GLUC 1GM/10ML VIAL IV SCH ×2 (00:30→23:57)
[2020-11-22] MEDS: DEXTROSE 50%-WATER 25 GM/50 ML VIAL IV SCH ×2 (00:30→23:57)
[2020-11-22 04:48] LABS: ABG BASE EXCESS -1.1 mmol/L (-2.0-3.0); ABG HCO3 27.5 mmol/L (21.0-28.0); ABG OXYGEN SATURATION 89.5 % (95.0-99.0); ABG PCO2 63 mmHg (32-45)
[2020-11-22 05:31] LABS: MEAN CORPUSCULAR HEMOGLOBIN 25.3 pg (27.0-33.0); MEAN CORPUSCULAR HGB CONC 31.4 g/dL (32.0-36.0); MEAN CORPUSCULAR VOLUME 80.6 fL (79-99); PLATELET COUNT (AUTO) 129 K/uL (130-400); RED BLOOD CELL COUNT(AUTO) 4.34 MIL/uL (4.00-5.50); RED CELL DISTRIBUTION WIDTH 21.1 % (11.0-15.5); WHITE BLOOD COUNT (AUTO) 19.4 K/uL (4.8-10.8)
[2020-11-22 05:49] LABS: CREATININE 4.1 mg/dL (0.5-1.5); POTASSIUM 3.9 mmol/L (3.5-5.1)
[2020-11-22] MEDS: SOLU-MEDROL 125MG VIAL IVP SCH ×3 (06:06→22:12)
[2020-11-22] MEDS ORDERED: ALBUMIN (HUMAN) 25% 100 ML IV PRN (08:30)
[2020-11-22] MEDS ORDERED: ALBUMIN (HUMAN) 25% 200 ML IV ONE (08:32)
[2020-11-22] MEDS: INSULIN GLARGINE 100 UNITS/ML 10 ML VIAL SQ SCH ×2 (10:09→22:12)
[2020-11-22] MEDS: PANTOPRAZOLE 40 MG/VIAL IVP SCH ×2 (10:09→21:05)
[2020-11-22] MEDS: POLYETHYLENE GLYCOL 3350 17 GM POWD.PACK PO SCH (10:09)
[2020-11-22] MEDS: FAMOTIDINE 20MG VIAL IV SCH (10:10)
[2020-11-22] MEDS: FUROSEMIDE 40MG VIAL IV SCH ×2 (10:10→21:05)
[2020-11-22] MEDS: FERROUS SULFATE 325 MG TABLET.DR PO SCH ×2 (10:10→21:05)
[2020-11-22] MEDS: Vitamin B Complex/Vit C/Folic Acid PO SCH (10:10)
[2020-11-22] MEDS: ZOSYN 3.375GM+NS 50ML 50 ML IV SCH ×2 (10:10→21:05)
[2020-11-22] MEDS: ALBUMIN (HUMAN) 25% 100 ML IV PRN (10:11)
[2020-11-22] MEDS: HEPARIN 5,000 UNIT VIAL SQ SCH (10:16)
[2020-11-22] MEDS ORDERED: ALBUTEROL INHALER 90MCG/INH IH PRN (16:45)
[2020-11-22] MEDS: EPOETIN ALFA 10,000 UNIT/ML VIAL SQ SCH (20:19)
[2020-11-23] VITALS (95 sets, daily range): BP systolic 65–173; BP diastolic 30–113
[2020-11-23 00:26] LABS: MEAN CORPUSCULAR HEMOGLOBIN 25.5 pg (27.0-33.0); MEAN CORPUSCULAR HGB CONC 29.4 g/dL (32.0-36.0); MEAN CORPUSCULAR VOLUME 86.8 fL (79-99); NUCLEATED RED BLOOD CELLS 0.1 % (0.0-0.19); PLATELET COUNT (AUTO) 149 K/uL (130-400); RED CELL DISTRIBUTION WIDTH 20.9 % (11.0-15.5); WHITE BLOOD COUNT (AUTO) 28.8 K/uL (4.8-10.8)
[2020-11-23 00:40] LABS: CREATININE 3.5 mg/dL (0.5-1.5); POTASSIUM 3.9 mmol/L (3.5-5.1)
[2020-11-23 00:43] LABS: BAND NEUTROPHILS % (MANUAL) 16 % (0-2); LYMPHOCYTES % (MANUAL) 11 % (22-44); MAN.DIFF COMMENT-IMPRESSION MANUAL DIFFERENTIAL; MONOCYTES % (MANUAL) 3 % (2-9); PLATELET MORPHOLOGY COMMENT ADEQUATE; SEGMENTED NEUTROPHILS % 70 % (40-70)
[2020-11-23 00:44] LABS: ALBUMIN 3.2 g/dL (3.5-5.0); B-TYPE NATRIURETIC PEPTIDE 2690 pg/mL (0-100); BILIRUBIN,TOTAL 0.4 mg/dL (0.2-1.0); TOTAL PROTEIN, SERUM 6.2 g/dL (6.0-8.3)
[2020-11-23] MEDS ORDERED: MIDAZOLAM 100MG-0.9% NS 100ML 100ML BAG IV ONE (00:45)
[2020-11-23] MEDS ORDERED: FENTANYL CITRATE PF 0.05 MG/ML 1,000 MCG in 0.9%NACL 100ML 100 ML IVPB SCH (00:45)
[2020-11-23] MEDS ORDERED: MIDAZOLAM HCL 100 MG in 0.9%NACL 50ML 100 ML IV SCH (01:30)
[2020-11-23] MEDS ORDERED: VECURONIUM 10MG/10ML IV ONE ×2 (02:00→02:10)
[2020-11-23] MEDS: FENTANYL 2500MCG+NS 250ML 250 ML IV SCH (02:31)
[2020-11-23] MEDS: FUROSEMIDE 100MG VIAL IVP SCH (02:32)
[2020-11-23] MEDS: MIDAZOLAM 100MG-0.9% NS 100ML 100 ML IV SCH ×3 (02:32→20:29)
[2020-11-23 05:37] LABS: HEMATOCRIT 28.1 % (36-48); MEAN CORPUSCULAR HEMOGLOBIN 25.9 pg (27.0-33.0); MEAN CORPUSCULAR HGB CONC 32.4 g/dL (32.0-36.0); MEAN CORPUSCULAR VOLUME 79.8 fL (79-99); NUCLEATED RED BLOOD CELLS 0.1 % (0.0-0.19); RED BLOOD CELL COUNT(AUTO) 3.52 MIL/uL (4.00-5.50)
[2020-11-23 05:41] LABS: CREATININE 3.6 mg/dL (0.5-1.5); POTASSIUM 3.1 mmol/L (3.5-5.1)
[2020-11-23 06:17] LABS: ABG BASE EXCESS -7.8 mmol/L (-2.0-3.0); ABG HCO3 30.2 mmol/L (21.0-28.0); ABG PCO2 > 155 mmHg (32-45)
[2020-11-23] MEDS: SOLU-MEDROL 125MG VIAL IVP SCH ×3 (06:20→22:18)
[2020-11-23] MEDS: INSULIN HUMULIN R 100 UNIT/ML 3ML SQ SCH ×4 (06:22→20:25)
[2020-11-23 06:45] LABS: ABG BASE EXCESS 4.4 mmol/L (-2.0-3.0); ABG OXYGEN SATURATION 99.9 % (95.0-99.0); ABG PCO2 24 mmHg (32-45)
[2020-11-23] MEDS: POLYETHYLENE GLYCOL 3350 17 GM POWD.PACK PO SCH (08:57)
[2020-11-23] MEDS: INSULIN GLARGINE 100 UNITS/ML 10 ML VIAL SQ SCH ×2 (08:57→20:25)
[2020-11-23] MEDS: Vitamin B Complex/Vit C/Folic Acid PO SCH (08:57)
[2020-11-23] MEDS: TRYPSIN/BALSAM PERU/CASTOR OIL OINT 60GM TUBE TP SCH (08:58)
[2020-11-23] MEDS: FERROUS SULFATE 325 MG TABLET.DR PO SCH ×2 (08:58→20:24)
[2020-11-23] MEDS: FUROSEMIDE 40MG VIAL IV SCH ×2 (08:58→20:30)
[2020-11-23] MEDS: FAMOTIDINE 20MG VIAL IV SCH (08:58)
[2020-11-23] MEDS: PANTOPRAZOLE 40 MG/VIAL IVP SCH ×2 (08:58→20:24)
[2020-11-23] MEDS: ZOSYN 3.375GM+NS 50ML 50 ML IV SCH ×2 (09:00→20:24)
[2020-11-23 12:15] LABS: ABG BASE EXCESS 5.9 mmol/L (-2.0-3.0); ABG HCO3 24.6 mmol/L (21.0-28.0); ABG OXYGEN SATURATION 99.9 % (95.0-99.0); ABG PCO2 22 mmHg (32-45)
[2020-11-23 17:04] LABS: ABG BASE EXCESS 2.4 mmol/L (-2.0-3.0); ABG HCO3 25.2 mmol/L (21.0-28.0); ABG OXYGEN SATURATION 99.5 % (95.0-99.0); ABG PCO2 34 mmHg (32-45)
[2020-11-23] MEDS: VECURONIUM 10MG/10ML 50 MG in 0.9%NACL 50ML 50 ML IV SCH (18:36)
[2020-11-23] MEDS: HEPARIN 5,000 UNIT VIAL SQ SCH (22:10)
[2020-11-23] MEDS: DEXTROSE 50%-WATER 25 GM/50 ML VIAL IV SCH (22:50)
[2020-11-23] MEDS: CALCIUM GLUC 1GM/10ML VIAL IV SCH (22:50)
[2020-11-24] VITALS (93 sets, daily range): BP systolic 91–163; BP diastolic 41–95
[2020-11-24] MEDS: INSULIN HUMULIN R 100 UNIT/ML 3ML SQ SCH ×5 (00:30→20:14)
[2020-11-24] MEDS: FUROSEMIDE 100MG VIAL IVP SCH (01:26)
[2020-11-24] MEDS: FENTANYL 2500MCG+NS 250ML 250 ML IV SCH (01:27)
[2020-11-24 03:25] LABS: ABG BASE EXCESS 4.1 mmol/L (-2.0-3.0); ABG HCO3 24.2 mmol/L (21.0-28.0); ABG PCO2 25 mmHg (32-45)
[2020-11-24 04:26] LABS: BASOPHILS % (AUTO) 0.5 % (0.0-5.0); HEMATOCRIT 25.5 % (36-48); MEAN CORPUSCULAR HGB CONC 34.5 g/dL (32.0-36.0); MEAN CORPUSCULAR VOLUME 75.4 fL (79-99); MONOCYTES % (AUTO) 2.9 % (3.0-13.0); NEUTROPHILS % (AUTO) 87.8 % (40.0-77.0); NUCLEATED RED BLOOD CELLS 0.2 % (0.0-0.19); PLATELET COUNT (AUTO) 142 K/uL (130-400); RED BLOOD CELL COUNT(AUTO) 3.38 MIL/uL (4.00-5.50); RED CELL DISTRIBUTION WIDTH 20.6 % (11.0-15.5); WHITE BLOOD COUNT (AUTO) 19.6 K/uL (4.8-10.8)
[2020-11-24 04:35] LABS: ALBUMIN 2.2 g/dL (3.5-5.0); BILIRUBIN,TOTAL 0.5 mg/dL (0.2-1.0); CREATININE 4.4 mg/dL (0.5-1.5); POTASSIUM 3.5 mmol/L (3.5-5.1)
[2020-11-24] MEDS: VECURONIUM 10MG/10ML 50 MG in 0.9%NACL 50ML 50 ML IV SCH (05:42)
[2020-11-24] MEDS: INSULIN GLARGINE 100 UNITS/ML 10 ML VIAL SQ SCH ×2 (06:29→20:15)
[2020-11-24] MEDS: SOLU-MEDROL 125MG VIAL IVP SCH ×3 (06:35→23:18)
[2020-11-24] MEDS: ZOSYN 3.375GM+NS 50ML 50 ML IV SCH ×2 (08:56→20:04)
[2020-11-24] MEDS: FERROUS SULFATE 325 MG TABLET.DR PO SCH (08:56)
[2020-11-24] MEDS: FUROSEMIDE 40MG VIAL IV SCH ×2 (08:56→20:06)
[2020-11-24] MEDS: PANTOPRAZOLE 40 MG/VIAL IVP SCH ×2 (08:56→20:05)
[2020-11-24] MEDS: POLYETHYLENE GLYCOL 3350 17 GM POWD.PACK PO SCH (08:56)
[2020-11-24] MEDS: Vitamin B Complex/Vit C/Folic Acid PO SCH (08:56)
[2020-11-24] MEDS: TRYPSIN/BALSAM PERU/CASTOR OIL OINT 60GM TUBE TP SCH (08:57)
[2020-11-24 12:38] LABS: ABG HCO3 19.6 mmol/L (21.0-28.0); ABG OXYGEN SATURATION 98.8 % (95.0-99.0); ABG PCO2 19 mmHg (32-45)
[2020-11-24] MEDS: MIDODRINE HCL 5 MG TABLET PO SCH ×2 (13:09→20:05)
[2020-11-24] MEDS: ALBUTEROL INHALER 90MCG/INH IH SCH ×4 (13:10→23:18)
[2020-11-24 19:28] LABS: ABG BASE EXCESS -4.6 mmol/L (-2.0-3.0); ABG HCO3 19.5 mmol/L (21.0-28.0); ABG OXYGEN SATURATION 92.9 % (95.0-99.0); ABG PCO2 33 mmHg (32-45)
[2020-11-24] MEDS: HEPARIN 5,000 UNIT VIAL SQ SCH (20:07)
[2020-11-25] VITALS (90 sets, daily range): BP systolic 72–190; BP diastolic 43–105
[2020-11-25] MEDS: INSULIN HUMULIN R 100 UNIT/ML 3ML SQ SCH ×5 (00:28→22:14)
[2020-11-25] MEDS: DEXTROSE 50%-WATER 25 GM/50 ML VIAL IV SCH (00:29)
[2020-11-25] MEDS: CALCIUM GLUC 1GM/10ML VIAL IV SCH (00:29)
[2020-11-25] MEDS: FUROSEMIDE 100MG VIAL IVP SCH (02:33)
[2020-11-25] MEDS: ALBUTEROL INHALER 90MCG/INH IH SCH ×6 (02:33→23:28)
[2020-11-25 04:47] LABS: HEMATOCRIT 26.3 % (36-48); MEAN CORPUSCULAR HEMOGLOBIN 26.7 pg (27.0-33.0); MEAN CORPUSCULAR HGB CONC 34.6 g/dL (32.0-36.0); MEAN CORPUSCULAR VOLUME 77.1 fL (79-99); PLATELET COUNT (AUTO) 144 K/uL (130-400); RED BLOOD CELL COUNT(AUTO) 3.41 MIL/uL (4.00-5.50); RED CELL DISTRIBUTION WIDTH 22.3 % (11.0-15.5); WHITE BLOOD COUNT (AUTO) 23.1 K/uL (4.8-10.8)
[2020-11-25 04:58] LABS: CREATININE 5.1 mg/dL (0.5-1.5); POTASSIUM 3.2 mmol/L (3.5-5.1)
[2020-11-25 05:09] LABS: BAND NEUTROPHILS % (MANUAL) 2 % (0-2); LYMPHOCYTES % (MANUAL) 3 % (22-44); MAN.DIFF COMMENT-IMPRESSION MANUAL DIFFERENTIAL; MONOCYTES % (MANUAL) 4 % (2-9); SEGMENTED NEUTROPHILS % 91 % (40-70)
[2020-11-25 05:12] LABS: PLATELET MORPHOLOGY COMMENT ADEQUATE
[2020-11-25] MEDS: SOLU-MEDROL 125MG VIAL IVP SCH ×3 (06:00→23:28)
[2020-11-25] MEDS: INSULIN GLARGINE 100 UNITS/ML 10 ML VIAL SQ SCH ×2 (06:15→22:12)
[2020-11-25 07:11] LABS: ABG BASE EXCESS -2.7 mmol/L (-2.0-3.0); ABG HCO3 21.5 mmol/L (21.0-28.0); ABG PCO2 36 mmHg (32-45)
[2020-11-25] MEDS: MIDODRINE HCL 5 MG TABLET PO SCH ×3 (08:23→20:59)
[2020-11-25] MEDS: ZOSYN 3.375GM+NS 50ML 50 ML IV SCH ×2 (08:23→21:03)
[2020-11-25] MEDS: FUROSEMIDE 40MG VIAL IV SCH ×2 (08:23→21:00)
[2020-11-25] MEDS: Vitamin B Complex/Vit C/Folic Acid PO SCH (08:23)
[2020-11-25] MEDS: PANTOPRAZOLE 40 MG/VIAL IVP SCH ×2 (08:23→20:59)
[2020-11-25] MEDS: TRYPSIN/BALSAM PERU/CASTOR OIL OINT 60GM TUBE TP SCH (08:24)
[2020-11-25] MEDS: POLYETHYLENE GLYCOL 3350 17 GM POWD.PACK PO SCH (08:24)
[2020-11-25] MEDS: EPOETIN ALFA 10,000 UNIT/ML VIAL SQ SCH (21:00)
[2020-11-25] MEDS: HEPARIN 5,000 UNIT VIAL SQ SCH (22:14)
[2020-11-26] VITALS (76 sets, daily range): BP systolic 97–159; BP diastolic 46–75
[2020-11-26] MEDS: CALCIUM GLUC 1GM/10ML VIAL IV SCH (00:30)
[2020-11-26] MEDS: DEXTROSE 50%-WATER 25 GM/50 ML VIAL IV SCH (00:30)
[2020-11-26] MEDS: INSULIN HUMULIN R 100 UNIT/ML 3ML SQ SCH ×5 (00:30→20:29)
[2020-11-26] MEDS: FUROSEMIDE 100MG VIAL IVP SCH (02:38)
[2020-11-26] MEDS: ALBUTEROL INHALER 90MCG/INH IH SCH ×5 (02:38→18:51)
[2020-11-26 04:26] LABS: HEMATOCRIT 26.5 % (36-48); MEAN CORPUSCULAR HEMOGLOBIN 26.2 pg (27.0-33.0); MEAN CORPUSCULAR HGB CONC 33.6 g/dL (32.0-36.0); MEAN CORPUSCULAR VOLUME 77.9 fL (79-99); RED BLOOD CELL COUNT(AUTO) 3.4 MIL/uL (4.00-5.50); RED CELL DISTRIBUTION WIDTH 22.4 % (11.0-15.5); WHITE BLOOD COUNT (AUTO) 28.9 K/uL (4.8-10.8)
[2020-11-26 04:41] LABS: CREATININE 3.9 mg/dL (0.5-1.5); POTASSIUM 3.1 mmol/L (3.5-5.1)
[2020-11-26 05:06] LABS: ABG BASE EXCESS 2.3 mmol/L (-2.0-3.0); ABG HCO3 25.8 mmol/L (21.0-28.0); ABG OXYGEN SATURATION 96.5 % (95.0-99.0); ABG PCO2 37 mmHg (32-45)
[2020-11-26] MEDS: SOLU-MEDROL 125MG VIAL IVP SCH ×2 (06:28→17:08)
[2020-11-26] MEDS: INSULIN GLARGINE 100 UNITS/ML 10 ML VIAL SQ SCH ×2 (06:29→20:27)
[2020-11-26] MEDS: Vitamin B Complex/Vit C/Folic Acid PO SCH (08:48)
[2020-11-26] MEDS: POLYETHYLENE GLYCOL 3350 17 GM POWD.PACK PO SCH (08:48)
[2020-11-26] MEDS: MIDODRINE HCL 5 MG TABLET PO SCH ×3 (08:48→20:19)
[2020-11-26] MEDS: PANTOPRAZOLE 40 MG/VIAL IVP SCH ×2 (08:48→20:20)
[2020-11-26] MEDS: ZOSYN 3.375GM+NS 50ML 50 ML IV SCH ×2 (08:49→20:19)
[2020-11-26] MEDS: TRYPSIN/BALSAM PERU/CASTOR OIL OINT 60GM TUBE TP SCH (09:53)
[2020-11-26] MEDS ORDERED: POTASSIUM CHLORIDE 10% ELIXIR 20 MEQ/15 ML UDCUP NG SCH (10:15)
[2020-11-26] MEDS: FUROSEMIDE 40MG VIAL IV SCH ×2 (11:22→20:20)
[2020-11-26] MEDS: HEPARIN 5,000 UNIT VIAL SQ SCH (22:45)
[2020-11-27] VITALS (70 sets, daily range): BP systolic 76–172; BP diastolic 43–84
[2020-11-27] MEDS: INSULIN HUMULIN R 100 UNIT/ML 3ML SQ SCH ×6 (00:30→23:40)
[2020-11-27] MEDS: CALCIUM GLUC 1GM/10ML VIAL IV SCH ×2 (00:30→23:39)
[2020-11-27] MEDS: DEXTROSE 50%-WATER 25 GM/50 ML VIAL IV SCH ×2 (00:30→23:40)
[2020-11-27] MEDS: ALBUTEROL INHALER 90MCG/INH IH SCH ×7 (00:54→23:39)
[2020-11-27] MEDS: SOLU-MEDROL 125MG VIAL IVP SCH ×4 (00:54→23:39)
[2020-11-27] MEDS: FUROSEMIDE 100MG VIAL IVP SCH (00:55)
[2020-11-27 05:40] LABS: HEMATOCRIT 24.7 % (36-48); MEAN CORPUSCULAR HEMOGLOBIN 26.7 pg (27.0-33.0); MEAN CORPUSCULAR HGB CONC 34.8 g/dL (32.0-36.0); MEAN CORPUSCULAR VOLUME 76.7 fL (79-99); NUCLEATED RED BLOOD CELLS 0.1 % (0.0-0.19); RED BLOOD CELL COUNT(AUTO) 3.22 MIL/uL (4.00-5.50); RED CELL DISTRIBUTION WIDTH 22.6 % (11.0-15.5)
[2020-11-27 06:11] LABS: ALBUMIN 1.8 g/dL (3.5-5.0); BILIRUBIN,TOTAL 0.4 mg/dL (0.2-1.0); CREATININE 4.4 mg/dL (0.5-1.5); POTASSIUM 3.4 mmol/L (3.5-5.1)
[2020-11-27] MEDS: INSULIN GLARGINE 100 UNITS/ML 10 ML VIAL SQ SCH ×2 (06:38→20:09)
[2020-11-27] MEDS: POLYETHYLENE GLYCOL 3350 17 GM POWD.PACK PO SCH (08:10)
[2020-11-27] MEDS: PANTOPRAZOLE 40 MG/VIAL IVP SCH ×2 (08:10→20:06)
[2020-11-27] MEDS: ZOSYN 3.375GM+NS 50ML 50 ML IV SCH ×2 (08:10→20:06)
[2020-11-27] MEDS: Vitamin B Complex/Vit C/Folic Acid PO SCH (08:10)
[2020-11-27] MEDS: MIDODRINE HCL 5 MG TABLET PO SCH ×3 (08:10→20:07)
[2020-11-27] MEDS: FUROSEMIDE 40MG VIAL IV SCH ×2 (08:57→21:37)
[2020-11-27] MEDS: TRYPSIN/BALSAM PERU/CASTOR OIL OINT 60GM TUBE TP SCH (09:17)
[2020-11-27] MEDS: EPOETIN ALFA-EPBX (ESRD) 10,000 UNIT/ML VIAL SQ SCH (12:30)
[2020-11-27] MEDS: HEPARIN 5,000 UNIT VIAL IJ PRN (12:32)
[2020-11-27] MEDS: HEPARIN 5,000 UNIT VIAL SQ SCH (22:45)
[2020-11-28] VITALS (33 sets, daily range): BP systolic 106–168; BP diastolic 49–81
[2020-11-28] MEDS: FUROSEMIDE 100MG VIAL IVP SCH (02:00)
[2020-11-28] MEDS: SOLU-MEDROL 125MG VIAL IVP SCH ×3 (02:17→23:48)
[2020-11-28] MEDS: ALBUTEROL INHALER 90MCG/INH IH SCH ×4 (02:18→15:00)
[2020-11-28 04:25] LABS: BILIRUBIN,TOTAL 0.4 mg/dL (0.2-1.0); CREATININE 3.1 mg/dL (0.5-1.5); POTASSIUM 3.2 mmol/L (3.5-5.1); TOTAL PROTEIN, SERUM 5.6 g/dL (6.0-8.3)
[2020-11-28] MEDS: INSULIN HUMULIN R 100 UNIT/ML 3ML SQ SCH ×4 (06:03→21:00)
[2020-11-28] MEDS: INSULIN GLARGINE 100 UNITS/ML 10 ML VIAL SQ SCH ×2 (06:05→22:04)
[2020-11-28 07:28] LABS: HEMATOCRIT 27.6 % (36-48); MEAN CORPUSCULAR HEMOGLOBIN 26.6 pg (27.0-33.0); MEAN CORPUSCULAR HGB CONC 33.7 g/dL (32.0-36.0); MEAN CORPUSCULAR VOLUME 79.1 fL (79-99); RED BLOOD CELL COUNT(AUTO) 3.49 MIL/uL (4.00-5.50); RED CELL DISTRIBUTION WIDTH 23.9 % (11.0-15.5)
[2020-11-28] MEDS: Vitamin B Complex/Vit C/Folic Acid PO SCH (08:25)
[2020-11-28] MEDS: PANTOPRAZOLE 40 MG/VIAL IVP SCH ×2 (08:25→21:58)
[2020-11-28] MEDS: ZOSYN 3.375GM+NS 50ML 50 ML IV SCH (08:25)
[2020-11-28] MEDS: TRYPSIN/BALSAM PERU/CASTOR OIL OINT 60GM TUBE TP SCH (08:27)
[2020-11-28] MEDS: FUROSEMIDE 40MG VIAL IV SCH ×2 (08:28→22:06)
[2020-11-28] MEDS: POTASSIUM CHLORIDE 10% ELIXIR 20 MEQ/15 ML UDCUP PO SCH (08:29)
[2020-11-28] MEDS: POLYETHYLENE GLYCOL 3350 17 GM POWD.PACK PO SCH (08:39)
[2020-11-28] MEDS: MIDODRINE HCL 5 MG TABLET PO SCH (09:00)
[2020-11-28] MEDS: HEPARIN 5,000 UNIT VIAL SQ SCH (22:16)
[2020-11-29] VITALS (38 sets, daily range): BP systolic 101–154; BP diastolic 61–90
[2020-11-29] MEDS: INSULIN HUMULIN R 100 UNIT/ML 3ML SQ SCH ×5 (00:30→21:44)
[2020-11-29] MEDS: SOLU-MEDROL 125MG VIAL IVP SCH ×3 (05:19→21:30)
[2020-11-29 06:06] LABS: HEMATOCRIT 30.9 % (36-48); MEAN CORPUSCULAR HGB CONC 32.4 g/dL (32.0-36.0); MEAN CORPUSCULAR VOLUME 80.3 fL (79-99); NUCLEATED RED BLOOD CELLS 0.1 % (0.0-0.19); RED BLOOD CELL COUNT(AUTO) 3.85 MIL/uL (4.00-5.50); RED CELL DISTRIBUTION WIDTH 24.3 % (11.0-15.5); WHITE BLOOD COUNT (AUTO) 29.1 K/uL (4.8-10.8)
[2020-11-29 06:26] LABS: ALBUMIN 2.2 g/dL (3.5-5.0); BILIRUBIN,TOTAL 0.4 mg/dL (0.2-1.0); POTASSIUM 3.9 mmol/L (3.5-5.1); TOTAL PROTEIN, SERUM 6.1 g/dL (6.0-8.3)
[2020-11-29] MEDS: INSULIN GLARGINE 100 UNITS/ML 10 ML VIAL SQ SCH ×2 (06:56→22:27)
[2020-11-29] MEDS: POTASSIUM CHLORIDE 10% ELIXIR 20 MEQ/15 ML UDCUP PO SCH (08:30)
[2020-11-29] MEDS: TRYPSIN/BALSAM PERU/CASTOR OIL OINT 60GM TUBE TP SCH (08:43)
[2020-11-29] MEDS: Vitamin B Complex/Vit C/Folic Acid PO SCH (08:43)
[2020-11-29] MEDS: FUROSEMIDE 40MG VIAL IV SCH ×2 (08:43→22:05)
[2020-11-29] MEDS: PANTOPRAZOLE 40 MG/VIAL IVP SCH ×2 (08:43→21:00)
[2020-11-29] MEDS: POLYETHYLENE GLYCOL 3350 17 GM POWD.PACK PO SCH (08:44)
[2020-11-29 09:31] LABS: INR 1.07 (0.85-1.15); PROTHROMBIN TIME 11.6 SEC (9.6-11.6)
[2020-11-29 09:32] LABS: PARTIAL THROMBOPLASTIN TIME 26.1 SEC (26.3-35.5)
[2020-11-29] MEDS: ALBUMIN (HUMAN) 25% 100 ML IV PRN (10:27)
[2020-11-29] MEDS: HEPARIN 5,000 UNIT VIAL IJ PRN (10:30)
[2020-11-29] MEDS: ALBUTEROL INHALER 90MCG/INH IH SCH (15:00)
[2020-11-29] MEDS: VANCOMYCIN 1G/250ML KIT 250 ML IV SCH (15:11)
[2020-11-29] MEDS: HEPARIN 5,000 UNIT VIAL SQ SCH (17:47)
[2020-11-29] MEDS: EPOETIN ALFA-EPBX (ESRD) 10,000 UNIT/ML VIAL SQ SCH (21:00)
[2020-11-30] VITALS (17 sets, daily range): BP systolic 103–156; BP diastolic 52–70
[2020-11-30] MEDS: INSULIN HUMULIN R 100 UNIT/ML 3ML SQ SCH ×5 (01:33→21:19)
[2020-11-30] MEDS: HEPARIN 5,000 UNIT VIAL SQ SCH ×2 (03:51→15:53)
[2020-11-30] MEDS: SOLU-MEDROL 125MG VIAL IVP SCH ×2 (06:44→15:51)
[2020-11-30] MEDS: Vitamin B Complex/Vit C/Folic Acid PO SCH (08:05)
[2020-11-30] MEDS: FUROSEMIDE 40MG VIAL IV SCH ×2 (08:06→21:08)
[2020-11-30] MEDS: PANTOPRAZOLE 40 MG/VIAL IVP SCH ×2 (08:06→21:00)
[2020-11-30] MEDS: INSULIN GLARGINE 100 UNITS/ML 10 ML VIAL SQ SCH ×2 (08:08→21:07)
[2020-11-30] MEDS: TRYPSIN/BALSAM PERU/CASTOR OIL OINT 60GM TUBE TP SCH (09:00)
[2020-11-30] MEDS: POLYETHYLENE GLYCOL 3350 17 GM POWD.PACK PO SCH (09:00)
[2020-11-30] MEDS: ALBUTEROL INHALER 90MCG/INH IH SCH ×2 (11:42→15:45)
[2020-11-30] MEDS: VANCOMYCIN 1G/250ML KIT 250 ML IV SCH (15:51)
== END 2020-11-30 21:24 | DRG 870 ==
LOC: EDH 08:11 → EDHIP 10:23 → 2CH 17:53 → 2CV 11-17 06:40
PROVIDERS: ADMIT Internal Medicine; ATTEND Internal Medicine
PROC: 5A1955Z Respiratory Ventilation, Greater than 96 Consecutive Hours (ICD-10-PCS; principal; 2020-11-14)
PROC: 0BH17EZ Insertion of Endotracheal Airway into Trachea, Via Natural or Artificial Opening (ICD-10-PCS; 2020-11-14)
PROC: 5A1D70Z Performance of Urinary Filtration, Intermittent, Less than 6 Hours Per Day (ICD-10-PCS; 2020-11-15)
PROC: 02HV33Z Insertion of Infusion Device into Superior Vena Cava, Percutaneous Approach (ICD-10-PCS; 2020-11-15)
PROC: 5A1D70Z Performance of Urinary Filtration, Intermittent, Less than 6 Hours Per Day (ICD-10-PCS; 2020-11-16)
PROC: 30233N1 Transfusion of Nonautologous Red Blood Cells into Peripheral Vein, Percutaneous Approach (ICD-10-PCS; 2020-11-18)
PROC: 5A1D70Z Performance of Urinary Filtration, Intermittent, Less than 6 Hours Per Day (ICD-10-PCS; 2020-11-18)
PROC: 5A0935A Assistance with Respiratory Ventilation, Less than 24 Consecutive Hours, High Flow/Velocity Cannula (ICD-10-PCS; 2020-11-19)
PROC: 5A1D70Z Performance of Urinary Filtration, Intermittent, Less than 6 Hours Per Day (ICD-10-PCS; 2020-11-20)
PROC: 5A09357 Assistance with Respiratory Ventilation, Less than 24 Consecutive Hours, Continuous Positive Airway Pressure (ICD-10-PCS; 2020-11-20)
PROC: 5A09457 Assistance with Respiratory Ventilation, 24-96 Consecutive Hours, Continuous Positive Airway Pressure (ICD-10-PCS; 2020-11-21)
PROC: 5A1D70Z Performance of Urinary Filtration, Intermittent, Less than 6 Hours Per Day (ICD-10-PCS; 2020-11-22)
PROC: 0BH17EZ Insertion of Endotracheal Airway into Trachea, Via Natural or Artificial Opening (ICD-10-PCS; 2020-11-23)
PROC: 5A1955Z Respiratory Ventilation, Greater than 96 Consecutive Hours (ICD-10-PCS; 2020-11-23)
PROC: 5A1D70Z Performance of Urinary Filtration, Intermittent, Less than 6 Hours Per Day (ICD-10-PCS; 2020-11-25)
PROC: 5A09357 Assistance with Respiratory Ventilation, Less than 24 Consecutive Hours, Continuous Positive Airway Pressure (ICD-10-PCS; 2020-11-26)
PROC: 5A1D70Z Performance of Urinary Filtration, Intermittent, Less than 6 Hours Per Day (ICD-10-PCS; 2020-11-27)
PROC: 5A09357 Assistance with Respiratory Ventilation, Less than 24 Consecutive Hours, Continuous Positive Airway Pressure (ICD-10-PCS; 2020-11-27)
PROC: 5A09357 Assistance with Respiratory Ventilation, Less than 24 Consecutive Hours, Continuous Positive Airway Pressure (ICD-10-PCS; 2020-11-28)
DX: A41.9 Sepsis, unspecified organism (principal); J96.01 Acute respiratory failure with hypoxia; N18.6 End stage renal disease; I50.33 Acute on chronic diastolic (congestive) heart failure; J12.82 Pneumonia due to coronavirus disease 2019; R65.21 Severe sepsis with septic shock; U07.1 COVID-19; N17.9 Acute kidney failure, unspecified; E87.2 Acidosis; I13.2 Hypertensive heart and chronic kidney disease with heart failure and with stage 5 chronic kidney disease, or end stage renal disease; E87.4 Mixed disorder of acid-base balance; G93.40 Encephalopathy, unspecified; M62.82 Rhabdomyolysis; R47.01 Aphasia; J95.851 Ventilator associated pneumonia; E86.0 Dehydration; E86.1 Hypovolemia; E87.5 Hyperkalemia; E11.22 Type 2 diabetes mellitus with diabetic chronic kidney disease; D64.9 Anemia, unspecified; E66.01 Morbid (severe) obesity due to excess calories; E78.5 Hyperlipidemia, unspecified; E87.6 Hypokalemia; I25.10 Atherosclerotic heart disease of native coronary artery without angina pectoris; I48.91 Unspecified atrial fibrillation; R53.81 Other malaise; K52.9 Noninfective gastroenteritis and colitis, unspecified; L89.152 Pressure ulcer of sacral region, stage 2; L89.302 Pressure ulcer of unspecified buttock, stage 2; Z68.32 Body mass index [BMI] 32.0-32.9, adult; Z74.01 Bed confinement status; Z95.1 Presence of aortocoronary bypass graft; Z99.2 Dependence on renal dialysis
CPT/HCPCS: 31500; 36415; 36430; 36569; 36600; 70450; 71045; 71250; 80048; 80053; 80061; 80202; 81001; 82040; 82140; 82435; 82550; 82565; 82728; 82803; 82947; 82948; 83036; 83540; 83550; 83605; 83735; 83874; 83880; 84100; 84132; 84145; 84295; 84484; 84520; 85014; 85018; 85025; 85027; 85610; 85730; 86022; 86140; 86701; 86704; 86706; 86850; 86900; 86901; 86923; 87040; 87340; 87390; 87426; 87520; 90935; 92610; 93005; 94002; 94003; 94660; 99291; C1894; C9113; G0378; J0610; J0696; J0885; J1644; J1815; J1940; J2543; J2704; J2930; J2997; J3010; J3370; J3475; J3490; J7030; J7050; J7070; P9016; P9046; U0003

== ENCOUNTER 2020-11-30 21:51 | Inpatient (IN) | payer OTHER, MEDICARE ==
[~2020-11-30] VITALS: Ht 149.9 cm; Wt 72.7 kg
[~2020-11-30 21:51] MED LIST changes: -ROCURONIUM BROMIDE 10MG/1ML 5ML VL IV ONE
[2020-11-30 22:10] LABS: BASOPHILS % (AUTO) 0.2 % (0.0-5.0); HEMATOCRIT 28.1 % (36-48); LYMPHOCYTES % (AUTO) 1.4 % (21.0-51.0); MEAN CORPUSCULAR HEMOGLOBIN 26.5 pg (27.0-33.0); MEAN CORPUSCULAR HGB CONC 32.4 g/dL (32.0-36.0); MEAN CORPUSCULAR VOLUME 81.9 fL (79-99); MONOCYTES % (AUTO) 2.2 % (3.0-13.0); NEUTROPHILS % (AUTO) 93.7 % (40.0-77.0); PLATELET COUNT (AUTO) 305 K/uL (130-400); RED BLOOD CELL COUNT(AUTO) 3.43 MIL/uL (4.00-5.50); RED CELL DISTRIBUTION WIDTH 24.6 % (11.0-15.5); WHITE BLOOD COUNT (AUTO) 24.7 K/uL (4.8-10.8)
[2020-11-30 22:10] LABS: APPEARANCE,URINE Turbid (CLEAR); BILIRUBIN,URINE Negative (NEGATIVE); COLOR,URINE Yellow (YELLOW); GLUCOSE, URINE (UA) TRACE mg/dL (NEGATIVE); KETONES,URINE Negative (NEGATIVE); LEUKOCYTE ESTERASE ,URINE Large (NEGATIVE); NITRATE,URINE Negative (NEGATIVE); OCCULT BLOOD,URINE Moderate (NEGATIVE); PH,URINE 6.5 (5.0-8.0); PROTEIN,URINE Trace mg/dL (NEGATIVE); UROBILINOGEN,URINE 0.2 mg/dL (0.2-1.0)
[2020-11-30 22:18] LABS: AMPHET/METH SCREEN,URINE NEGATIVE (NEGATIVE); BARBITURATE SCREEN, URINE NEGATIVE (NEGATIVE); BENZODIAZEPINES SCREEN,URINE POSITIVE (NEGATIVE); CANNABINOID SCREEN,URINE NEGATIVE (NEGATIVE); COCAINE SCREEN,URINE NEGATIVE (NEGATIVE); OPIATE SCREEN,URINE NEGATIVE (NEGATIVE); PHENCYCLIDINE SCREEN,URINE NEGATIVE (NEGATIVE)
[2020-11-30 22:21] LABS: CREATININE 3.4 mg/dL (0.5-1.5); POTASSIUM 3.3 mmol/L (3.5-5.1)
[2020-11-30 22:22] LABS: PROTHROMBIN TIME 10.9 SEC (9.6-11.6)
[2020-11-30 22:24] LABS: PARTIAL THROMBOPLASTIN TIME 24.3 SEC (26.3-35.5)
[2020-11-30 22:26] LABS: ALBUMIN 2.7 g/dL (3.5-5.0); BILIRUBIN,TOTAL 0.3 mg/dL (0.2-1.0); TOTAL PROTEIN, SERUM 6.3 g/dL (6.0-8.3)
[2020-11-30 22:48] LABS: BACTERIA,URINE Few /HPF (None Seen); MUCUS,URINE Few LPF (None Seen); SQUAMOUS EPITHELIAL CELL,UR Rare /HPF (0-2); YEAST,URINE BUDDING Many /HPF (None Seen)
[2020-12-01] MEDS ORDERED: CLONIDINE HCL 0.1 MG TABLET PO PRN (00:15)
[2020-12-01] MEDS ORDERED: ACETAMINOPHEN 650 MG SUPPOSITORY RC PRN (00:15)
[2020-12-01] MEDS ORDERED: ONDANSETRON 4MG INJ IVP PRN (00:15)
[2020-12-01] MEDS ORDERED: HYDRALAZINE 20MG/ML VIAL IV PRN (00:15)
[2020-12-01] MEDS ORDERED: ACETAMINOPHEN 325 MG TAB PO PRN (00:15)
[2020-12-01] MEDS ORDERED: VANCOMYCIN PROTOCOL PER PHARMACY IV SCH ×2 (00:15→08:00)
[2020-12-01] MEDS ORDERED: VANCOMYCIN KIT 1 GM/250 ML IV.KIT IV SCH (00:15)
[2020-12-01] MEDS ORDERED: SOLU-MEDROL 40MG VIAL ONE (00:59)
[2020-12-01] MEDS ORDERED: 0.9%NACL 100ML 100 ML IV ONE (00:59)
[2020-12-01] MEDS ORDERED: CEFEPIME HCL 1 GM VIAL ONE (00:59)
[2020-12-01 01:16] LABS: TROPONIN I 0.28 ng/mL (0.00-0.06)
[2020-12-01 01:16] LABS: ABG BASE EXCESS 1.9 mmol/L (-2.0-3.0); ABG HCO3 29.1 mmol/L (21.0-28.0); ABG OXYGEN SATURATION 97.9 % (95.0-99.0); ABG PCO2 56 mmHg (32-45)
[2020-12-01] MEDS: IPRATROPIUM/ALBUTEROL SULFATE 3 ML SOLUTION IH SCH ×6 (02:00→22:00)
[2020-12-01] MEDS ORDERED: VANCOMYCIN 1G/250ML KIT 250 ML IV ONE (02:16)
[2020-12-01] MEDS: INSULIN HUMULIN R 100 UNIT/ML 3ML SQ SCH ×4 (06:40→21:24)
[2020-12-01 07:18] LABS: TROPONIN I 0.33 ng/mL (0.00-0.06)
[2020-12-01 07:33] VITALS: BP 138/76
[2020-12-01] MEDS: POLYETHYLENE GLYCOL 3350 17 GM POWD.PACK PO SCH (08:15)
[2020-12-01] MEDS: CEFEPIME HCL 1 GM VIAL IVP SCH ×2 (08:33→13:16)
[2020-12-01] MEDS: FERROUS SULFATE 325 MG TABLET.DR PO SCH (08:33)
[2020-12-01] MEDS: SOLU-MEDROL 125MG VIAL IVP SCH ×2 (08:33→13:15)
[2020-12-01] MEDS: ENOXAPARIN SODIUM 30 MG/0.3 ML SQ SCH (08:33)
[2020-12-01 12:15] LABS: TROPONIN I 0.26 ng/mL (0.00-0.06)
[2020-12-01] MEDS ORDERED: PHARMACY COMMUNICATION MISC SCH (15:45)
[2020-12-01 19:00] VITALS: BP 141/69
[2020-12-01 20:00] VITALS: BP 127/64
[2020-12-01 21:00] VITALS: BP 125/85
[2020-12-01 22:00] VITALS: BP 130/66
[2020-12-01 23:00] VITALS: BP 140/80
[2020-12-02] VITALS (10 sets, daily range): BP systolic 115–150; BP diastolic 60–94
[2020-12-02] MEDS: CEFEPIME HCL 1 GM VIAL IVP SCH ×2 (00:24→12:23)
[2020-12-02] MEDS: SOLU-MEDROL 125MG VIAL IVP SCH ×2 (00:28→12:23)
[2020-12-02] MEDS: IPRATROPIUM/ALBUTEROL SULFATE 3 ML SOLUTION IH SCH ×2 (02:00→06:00)
[2020-12-02 04:38] LABS: BASOPHILS % (AUTO) 0.2 % (0.0-5.0); HEMATOCRIT 26.1 % (36-48); LYMPHOCYTES % (AUTO) 1.5 % (21.0-51.0); MEAN CORPUSCULAR HGB CONC 31.8 g/dL (32.0-36.0); MEAN CORPUSCULAR VOLUME 81.8 fL (79-99); MONOCYTES % (AUTO) 3.4 % (3.0-13.0); NEUTROPHILS % (AUTO) 93.5 % (40.0-77.0); PLATELET COUNT (AUTO) 308 K/uL (130-400); RED BLOOD CELL COUNT(AUTO) 3.19 MIL/uL (4.00-5.50); RED CELL DISTRIBUTION WIDTH 25.1 % (11.0-15.5); WHITE BLOOD COUNT (AUTO) 24.5 K/uL (4.8-10.8)
[2020-12-02 05:23] LABS: CREATININE 3.7 mg/dL (0.5-1.5); MAGNESIUM 2.1 mg/dL (1.80-2.40); PHOSPHORUS 6.4 mg/dL (2.5-4.9); POTASSIUM 3.2 mmol/L (3.5-5.1)
[2020-12-02] MEDS: INSULIN HUMULIN R 100 UNIT/ML 3ML SQ SCH ×4 (06:32→22:40)
[2020-12-02] MEDS ORDERED: VANCOMYCIN 1G/250ML KIT 250 ML IV SCH (09:00)
[2020-12-02] MEDS ORDERED: HEPARIN 5,000 UNIT VIAL IJ PRN ×2 (11:15)
[2020-12-02] MEDS ORDERED: 0.9%NACL 1000ML 1,000 ML IV PRN (11:15)
[2020-12-02] MEDS ORDERED: ACETAMINOPHEN 325 MG TAB PO PRN (11:15)
[2020-12-02] MEDS ORDERED: LIDOCAINE HCL-MPF 1% 2ML VIAL IJ PRN (11:15)
[2020-12-02] MEDS ORDERED: NITROGLYCERIN 0.4 MG SL TAB SL PRN (11:15)
[2020-12-02] MEDS ORDERED: 0.9%NACL 1000ML IV PRN (11:15)
[2020-12-02] MEDS ORDERED: Cefepime Hcl IVP ×2 (11:40)
[2020-12-02] MEDS ORDERED: HYDR20I IV ×2 (11:40)
[2020-12-02] MEDS ORDERED: Vancomycin Protocol IV ×2 (11:40)
[2020-12-02] MEDS ORDERED: METH125V14 IVP ×2 (11:40)
[2020-12-02] MEDS ORDERED: FERR324T4 PO ×2 (11:40)
[2020-12-02] MEDS ORDERED: ENOX30DI4 SQ ×2 (11:40)
[2020-12-02] MEDS: FERROUS SULFATE 325 MG TABLET.DR PO SCH (12:23)
[2020-12-02] MEDS: POLYETHYLENE GLYCOL 3350 17 GM POWD.PACK PO SCH (12:24)
[2020-12-02] MEDS: ENOXAPARIN SODIUM 30 MG/0.3 ML SQ SCH (12:24)
[2020-12-02] MEDS: VANCOMYCIN 1G/250ML KIT 250 ML IV SCH (14:34)
[2020-12-02] MEDS: BALSAM PERU/CASTOR OIL 60 GM TUBE TP SCH (22:38)
[2020-12-03] VITALS (14 sets, daily range): BP systolic 96–154; BP diastolic 44–94
[2020-12-03] MEDS: SOLU-MEDROL 125MG VIAL IVP SCH ×2 (00:57→11:50)
[2020-12-03] MEDS: CEFEPIME HCL 1 GM VIAL IVP SCH ×2 (00:59→11:49)
[2020-12-03] MEDS: INSULIN HUMULIN R 100 UNIT/ML 3ML SQ SCH ×4 (07:10→21:24)
[2020-12-03] MEDS: FERROUS SULFATE 325 MG TABLET.DR PO SCH (09:00)
[2020-12-03] MEDS: BALSAM PERU/CASTOR OIL 60 GM TUBE TP SCH ×3 (09:58→20:14)
[2020-12-03] MEDS: POLYETHYLENE GLYCOL 3350 17 GM POWD.PACK PO SCH (09:58)
[2020-12-03] MEDS: ENOXAPARIN SODIUM 30 MG/0.3 ML SQ SCH (09:58)
[2020-12-03] MEDS: VANCOMYCIN 1G/250ML KIT 250 ML IV SCH (14:52)
[2020-12-03] MEDS ORDERED: SIMVASTATIN 20 MG TABLET PO SCH (21:00)
[2020-12-04] VITALS (15 sets, daily range): BP systolic 75–142; BP diastolic 39–68
[2020-12-04] MEDS: CEFEPIME HCL 1 GM VIAL IVP SCH ×2 (00:15→12:12)
[2020-12-04] MEDS: SOLU-MEDROL 125MG VIAL IVP SCH ×2 (00:22→12:12)
[2020-12-04 04:14] LABS: HEMATOCRIT 23.6 % (36-48); MEAN CORPUSCULAR HEMOGLOBIN 26.4 pg (27.0-33.0); MEAN CORPUSCULAR HGB CONC 31.8 g/dL (32.0-36.0); MEAN CORPUSCULAR VOLUME 83.1 fL (79-99); PLATELET COUNT (AUTO) 188 K/uL (130-400); RED BLOOD CELL COUNT(AUTO) 2.84 MIL/uL (4.00-5.50); RED CELL DISTRIBUTION WIDTH 25.3 % (11.0-15.5); WHITE BLOOD COUNT (AUTO) 19.5 K/uL (4.8-10.8)
[2020-12-04 04:33] LABS: CREATININE 2.6 mg/dL (0.5-1.5); POTASSIUM 3.7 mmol/L (3.5-5.1)
[2020-12-04] MEDS: INSULIN HUMULIN R 100 UNIT/ML 3ML SQ SCH ×2 (05:47→12:14)
[2020-12-04] MEDS: FERROUS SULFATE 325 MG TABLET.DR PO SCH (09:00)
[2020-12-04] MEDS ORDERED: ASPIRIN 81 MG EC TAB PO SCH (09:00)
[2020-12-04] MEDS ORDERED: ASPIRIN 81MG CHEW TAB PO SCH (09:00)
[2020-12-04] MEDS ORDERED: FERROUS SULFATE 300 MG/5 ML LIQ UDCUP PO SCH (09:00)
[2020-12-04] MEDS ORDERED: CLOPIDOGREL 75MG TAB PO SCH (09:00)
[2020-12-04] MEDS: POLYETHYLENE GLYCOL 3350 17 GM POWD.PACK PO SCH (09:10)
[2020-12-04] MEDS: ENOXAPARIN SODIUM 30 MG/0.3 ML SQ SCH (09:12)
[2020-12-04] MEDS: BALSAM PERU/CASTOR OIL 60 GM TUBE TP SCH ×2 (09:29→14:16)
[2020-12-04] MEDS ORDERED: ALBUMIN (HUMAN) 25% 100 ML IV SCH (09:45)
[2020-12-04] MEDS ORDERED: VANCOMYCIN 1G/250ML KIT 250 ML IV NR (15:00)
== END 2020-12-04 15:30 | DRG 70 ==
LOC: EDH 21:51 → EDHIP 12-01 00:15 → 2CV 12-01 02:16
PROVIDERS: ADMIT Internal Medicine Critical Care Medicine; ATTEND Internal Medicine Critical Care Medicine
PROC: 5A1D70Z Performance of Urinary Filtration, Intermittent, Less than 6 Hours Per Day (ICD-10-PCS; 2020-12-02)
PROC: 5A1D70Z Performance of Urinary Filtration, Intermittent, Less than 6 Hours Per Day (ICD-10-PCS; principal; 2020-12-04)
DX: G93.40 Encephalopathy, unspecified (principal); U07.1 COVID-19; J12.82 Pneumonia due to coronavirus disease 2019; J96.01 Acute respiratory failure with hypoxia; N17.9 Acute kidney failure, unspecified; G81.94 Hemiplegia, unspecified affecting left nondominant side; E87.70 Fluid overload, unspecified; I10 Essential (primary) hypertension; E11.9 Type 2 diabetes mellitus without complications; E78.5 Hyperlipidemia, unspecified; E87.5 Hyperkalemia; I25.10 Atherosclerotic heart disease of native coronary artery without angina pectoris; L89.152 Pressure ulcer of sacral region, stage 2; Z99.2 Dependence on renal dialysis
CPT/HCPCS: 31720; 36415; 36600; 70450; 70544; 70547; 70551; 71045; 80048; 80053; 80202; 80305; 81001; 82140; 82550; 82803; 82948; 83605; 83721; 83735; 83874; 84100; 84484; 85025; 85027; 85610; 85730; 87071; 87088; 87205; 90935; 93005; G0378; J0692; J1644; J1650; J1815; J2920; J2930; J3370; P9046